=== PATIENT | female | born 2005 | race Two or more races ===

== ENCOUNTER 2024-01-05 21:27 | Emergency (ER) | payer MEDICAID, OTHER ==
[~2024-01-05] VITALS: Ht 167.6 cm; Wt 52.4 kg
[2024-01-05 21:53] LABS: Basophils # (auto) 0.1 10 ^3/uL (0-0.2); Basophils % (auto) 0.7 % (0.0-2.0); Eosinophils # (auto) 0.2 10 ^3/uL (0-0.8); Eosinophils % (auto) 1.3 % (0.0-7.0); Hematocrit 38.3 % (36.0-46.0); Hemoglobin 12.8 g/dL (12.2-16.2); Lymphocytes # (auto) 2.5 10 ^3/uL (0.4-5.4); Lymphocytes % (auto) 18.3 % (10.0-50.0); Mean Corpuscular Hemoglobin 29.1 pg (28.0-32.0); Mean Corpuscular Hgb Conc. 33.3 g/dL (32.0-36.0); Mean Corpuscular Volume 87.2 fL (80.0-100.0); Monocytes % (auto) 7.6 % (0.0-12.0); Neutrophils # (auto) 9.8 10 ^3/uL (1.6-8.6); Neutrophils % (auto) 72.1 % (37.0-80.0); Platelet Count (auto) 238 10^3/uL (140-450); Red Blood Cells 4.39 10^6/uL (4.0-5.20); Red Cell Distribution Width 14.8 % (11.8-14.3); White Blood Cell 13.5 10^3/uL (4.4-10.8)
[2024-01-05 22:08] LABS: Albumin 4.7 g/dL (3.2-4.8); Alkaline Phosphatase 61 U/L (46-116); Anion Gap 8 (5-15); Aspartate Aminotransferase < 8 U/L (13-40); BUN/Creatinine Ratio 11.3 (10.0-20.0); Blood Urea Nitrogen 7 mg/dL (9-23); Calcium 9.4 mg/dL (8.7-10.4); Carbon Dioxide 23 mmol/L (20-30); Chloride 107 mmol/L (98-107); Glucose 95 mg/dL (74-106); Potassium 3.4 mmol/L (3.5-5.1); Sodium 138 mmol/L (136-145)
[2024-01-05 22:09] LABS: Total Protein 6.9 g/dL (5.7-8.2)
[2024-01-05 22:14] LABS: Alanine Aminotransferase < 9 U/L (7-40)
[2024-01-05 22:23] LABS: Free T3 3.38 pg/mL (2.3-4.2); Free T4 (Free Thyroxine) 1.35 ng/dL (0.89-1.76)
[2024-01-05 23:50] LABS: INR 0.98 (0.9-1.15); Partial Thromboplastin Time 26.2 SEC (24.5-34.5); Prothrombin Time 10.4 sec (9.3-11.8)
[2024-01-06 00:18] VITALS: BP 128/86; PULSE 88; RESP 18; TEMP 98.2; O2SAT 100
[2024-01-06] MEDS: POTASSIUM CHL 20 Meq TABLET PO ONE (00:56)
== END 2024-01-06 00:59 | disposition home or self-care (01) ==
LOC: ER 21:27
DX: R07.89 Other chest pain (principal); Z79.899 Other long term (current) drug therapy
CPT/HCPCS: 36415; 71045; 80053; 83735; 83880; 84439; 84443; 84481; 84484; 85025; 85610; 85730; 93005

== ENCOUNTER 2024-08-22 00:33 | Emergency (ER) | payer MEDICAID ==
[~2024-08-22] VITALS: Ht 167.6 cm; Wt 61.3 kg
[2024-08-22 00:45] VITALS: TEMP 98.5
--- NOTE | 2024-08-22 00:48 | ED.PDOC ---
EXEC. CREATIVE DIRECTOR HPI Comments HPI: Poor Historian. 19-year-old female 19 weeks gestation one miscarriage presents to the ED for evaluation of two week history of watery clear discharge when she stands up. She notified the OB Gyne doctor that told her it was normal. She also stated that when she goes to the OB Gyne doctor the usually tell her that her heart rate is fast. Patient denies any vaginal bleeding or abdominal pain. Past Medical History: Denies any Past Surgical History: Denies any REVIEW OF SYSTEMS: CONSTITUTIONAL: Denies acute: fever, diaphoresis, chills, generalized weakness. HEAD: Denies acute: headache, photophobia Eyes: Denies acute: Double vision, vision loss, eye pain, eye discharge. EARS: Denies acute: tinnitus, hearing loss, ear discharge, ear pain, THROAT: Denies acute: sore throat, swelling, difficulty swallowing , pain with swallowing, change in voice. NECK: Denies acute: neck pain, neck swelling, stiff neck. HEART: Denies acute : chest pain, palpitations, LUNGS: Denies acute: SOB, wheezing, cough, hemoptysis ABDOMEN: Denies acute: abdominal pain, Nausea, Vomiting, diarrhea, melena , hematemesis, hematochezia SKIN: Denies acute: rash, redness, lesions, itchiness. EXTREMITIES: Denies acute: calf pain, numbness, tingling, weakness, denies pain in extremity. Denies acute: Low back pain. Neuro: Denies acute: focal neurological deficit, motor or sensory focal neurological deficit, tremors, seizure like activity, confusion, dizziness, change in mental status, loss of bowel or bladder function, cauda equina like symptoms. : Denies acute: dysuria, hematuria, flank pain, increase in urinary frequency. PSYCH: Denies acute: hallucination, suicidal ideation, homicidal ideation. FEMALE: Denies acute: abnormal vaginal bleeding, foul odor, PHYSICAL EXAM: General: -----no---acute distress, awake and alert. Head: normocephalic, atraumatic. Neck: supple, trachea is midline, no swelling. Throat: Normal phonation. Eyes:, no erythema, no purulent discharge, no proptosis, no icterus. Heart: regular tachycardic, no significant murmur appreciated. Lungs: no apparent respiratory distress, Able to speak in full sentences. No wheezing, no rhonchi, no crackles. No stridors Clear to auscultation bilaterally. Abdomen: non tender to palpation, non distended, soft, no guarding, no rebound, + bowel sounds. Neuro: Awake, Alert, oriented to name, self, situation, follows commands GCS=15. Speech is normal. Skin: no petechia, no purpura, no cyanosis, non-pale, not jaundice. Lower extremities: --trace bilateral - Pitting edema no deformity, no focal swelling, no calf TTP. Makes eye contact. moves all four extremities. Face: no apparent facial droop. Ambulating in the ED independently. No nuchal rigidity, Kernig's sign, Brudzinski's sign, no meningeal signs. ED COURSE: Time Seen by MD: 00:41 Reviewed Notes: Nurses Notes Allergies: Coded Allergies: NO KNOWN ALLERGIES (Unverified , 01/05/24) Home Meds Active Scripts Cephalexin Monohydrate (Cephalexin) 500 Mg Tab, 1 TAB PO TID for 5 Days, #15 TAB Prov:KINGVIANEY DO 08/22/24 Information Source: Patient Past Medical History PAST MEDICAL HISTORY: Denies Surgical History: Denies all surgeries HEAD CONCIERGE History: No Pertinent HEAD CONCIERGE History Family History Family History: Reviewed,noncontributory to illness Social History Smoker: Non-Smoker Alcohol: Denies ETOH Use Drugs: Denies Drug Use Was a procedure done? Was a procedure done?: No Differential Diagnosis (HEAD CONCIERGE) Vaginal Discharge: Foreign Body, Physiologic Discharge, PID, Pinworms, , UTI, Vaginitis - Atrophic, Vaginitis - Bacterial, Vaginitis - Candidal, Vaginitis - Contact, Vaginitis - Herpes, Vaginitis - Trichomonas X-Ray, Labs, Meds, VS Vital Signs Date Time Temp Pulse Resp B/P (MAP) Pulse Ox O2 Delivery O2 Flow Rate FiO2 08/22/24 02:40 94 16 109/68 (82) 96 08/22/24 00:45 98.5 131 20 131/84 (100) 95 98.5 Lab Test 08/22/24 02:45 08/22/24 00:54 08/22/24 00:45 Range/Units White Blood Count 11.4 H 13.7 H 4.4-10.8 10^3/uL Red Blood Count 3.76 L 4.30 4.0-5.20 10^6/uL Hemoglobin 10.9 L 12.3 12.2-16.2 g/dL Hematocrit 33.2 L 36.5 36.0-46.0 % Mean Corpuscular Volume 88.3 # 84.9 80.0-100.0 fL Mean Corpuscular Hemoglobin 29.1 28.5 28.0-32.0 pg Mean Corpuscular Hemoglobin Concent 32.9 33.5 32.0-36.0 g/dL Red Cell Distribution Width 13.3 13.8 11.8-14.3 % Platelet Count 179 217 140-450 10^3/uL Mean Platelet Volume 11.0 H 10.5 6.9-10.8 fL Neutrophils (%) (Auto) 72.6 67.2 37.0-80.0 % Lymphocytes (%) (Auto) 17.8 22.2 10.0-50.0 % Monocytes (%) (Auto) 7.3 8.4 0.0-12.0 % Eosinophils (%) (Auto) 1.9 1.7 0.0-7.0 % Basophils (%) (Auto) 0.4 0.5 0.0-2.0 % Neutrophils # (Auto) 8.2 9.2 H 1.6-8.6 10 ^3/uL Lymphocytes # (Auto) 2.0 3.0 0.4-5.4 10 ^3/uL Monocytes # (Auto) 0.8 1.1 0-1.3 10 ^3/uL Eosinophils # (Auto) 0.2 0.2 0-0.8 10 ^3/uL Basophils # (Auto) 0 0.1 0-0.2 10 ^3/uL Nucleated Red Blood Cells 0.0 0.1 % Lactic Acid Level 1.3 2.4 *H 0.4-2.0 mmol/L Sodium Level 138 136-145 mmol/L Potassium Level 3.5 3.5-5.1 mmol/L Chloride Level 106 98-107 mmol/L Carbon Dioxide Level 19 L 20-31 mmol/L Anion Gap 13 5-15 Blood Urea Nitrogen < 5 L 9-23 mg/dL Creatinine 0.45 L 0.550-1.02 mg/dL Glomerular Filtration Rate Calc 141 >90 mL/min BUN/Creatinine Ratio 11.1 10.0-20.0 Serum Glucose 98 74-106 mg/dL Calcium Level 9.9 8.7-10.4 mg/dL Magnesium Level 1.8 1.6-2.6 mg/dL Total Bilirubin 0.6 0.2-1.0 mg/dL Aspartate Amino Transferase (AST) 9 L 13-40 U/L Alanine Aminotransferase (ALT) 11 7-40 U/L Alkaline Phosphatase 65 46-116 U/L Total Protein 7.0 5.7-8.2 g/dL Albumin 4.7 3.2-4.8 g/dL Thyroid Stimulating Hormone (TSH) 0.41 L 0.55-4.78 uIU/mL Beta HCG, Quantitative 74144.6 H 1.5-4.2 mIU/mL Urine Color Colorless Yellow Urine Clarity Clear Clear Urine pH 7.0 5.0-9.0 Urine Specific [place] 1.003 1.001-1.035 Urine Protein Negative Negative Urine Ketones Negative Negative Urine Blood Negative Negative /uL Urine Nitrite Negative Negative Urine Bilirubin Negative Negative Urine Urobilinogen Normal Negative mg/dL Urine Leukocyte Esterase Negative Negative /uL Urine RBC 1 0 - 4 /hpf Urine Microscopic WBC 1 0-5 /HPF Urine Squamous Epithelial Cells Few <5 /hpf Urine Bacteria None seen None Seen /hpf Urine Glucose Normal Normal mg/dL Urine Opiates Screen Neg NEGATIVE Urine Fentanyl Screen Neg NEGATIVE Urine Barbiturates Screen Neg NEGATIVE Urine Phencyclidine Screen Neg NEGATIVE Urine Amphetamines Screen Neg NEGATIVE Urine Benzodiazepines Screen Neg NEGATIVE Urine Cocaine Screen Neg NEGATIVE Urine Cannabinoids Screen Neg NEGATIVE Current Medications Medications (Trade) Dose Ordered Sig/Lorri Route Start Time Stop Time Status Last Admin Sodium Chloride 1,000 ml @ 1,000 mls/hr Q1H ONCE IV 08/22/24 00:45 08/22/24 01:44 DC 08/22/24 01:[address] [address] Ph: [phone] DIAGNOSTIC IMAGING Diagnostic Imaging Report : [id number] Signed PATIENT: GARCIA ASTORGAESTHELACT: [id number] UNIT: [id number] : 2005 LOC: ER ROOM / BED: / AGE / SEX: 19 / F ADM STATUS: REG ER SERVICE [id number] ORDERING PHYSICIAN: VIANEY MALIK DO PROCEDURE(s): OBUS - OB ULTRASOUND COMP GTR 14 WKS REASON: watery discharge ORDER NUMBER(s): [id number], ACCESSION NUMBER(s): [id number] OB ULTRASOUND, LIMITED CLINICAL INDICATION: watery discharge TECHNIQUE: Multiple grayscale ultrasound and M-mode images were obtained of the pelvis for evaluation of intrauterine . COMPARISON: None FINDINGS: A single living fetus is seen in breech presentation. Biparietal diameter: 4.34 cm (19 weeks, 1 days) Head Circumference: 16.64 cm (19 weeks, 2 days) Abdomen Circumference: 14.79 cm (20 weeks, 0 days) Femur Length: 3.06 cm (19 weeks, 3 days) Estimated weight: 309 grams (+/- 46.36 grams). 11 oz Placenta: Anterior. Amniotic fluid: Visibly normal. heart rate: 164 beats/min. A complete anatomic survey was not performed on this exam. IMPRESSION: Single living intrauterine with an estimated gestational age of 19 weeks, 3 days, corresponding to an estimated date of delivery of 01/13/2025. ATED BY: CAROLYN BRAUN MD DICTATED DATE/TIME: 08/22/24139 SIGNED BY: CAROLYN BRAUN MD SIGNED DATE/TIME: 08/22/24139 CC: Time of 1ST Reevaluation: 02:54 Reevaluation 1ST: Resolved Patient Education/Counseling: Diagnosis, Treatment Family Education/Counseling: Other Comments Patient presented with the above HPI.-vaginal discharge in -----workup was initiated. patient was found with the above mentioned diagnosis. the following medications were ordered: please refer to order lists of meds and tests obtained by myself Dr. Malik. Patient ED course and VS have been stabilized. Patient has been reassessed in the ED and remained in a stable condition. Pertinent incidental findings were discussed with the patient and/or family. Patient/family voices understanding and is agreeable with plan. Patient has been observed in the ED adequate length of time to insure improvement/stability. Escalation of care considered: Consideration of escalation to observation or admission Patient was found to be tachycardic in the 130s and appears dehydrated and weak. Patient was given fluid resuscitation reassessed. Her tachycardia has resolved. Patient denies any itchiness or foul odor Patient was DISCHARGED home in a stable condition. All the reports of any imaging studies that were ordered by myself were reviewed by myself. Departure 1 Departure Time of Disposition: 02:25 Impression: Primary Impression: Vaginal discharge during Additional Impressions: Breech presentation Dehydration Thyroid disease during Disposition: HOME / SELF CARE / HOMELESS Condition: Stable Additional Instructions: Additional instructions: You MUST follow-up with your primary care/family doctor in 1 to 2 days. If you are unable to see your primary care/family doctor, please return to our emergency room for re-assessment and re-evaluation in 1 to 2 days. Return to the emergency room here in our facility or to the nearest ER [facility] if your symptoms change or worsen. CONSULTATIONS: you MUST Follow-up for consultation as soon as possible with: Dr.-OB Grijalva doctor in 1-2 days. Please call for appointment. You MUST call the consultants office yourself to make an appointment. You may need to arrange that through your insurance and/or your primary/family doctor. If you are unable to see the security and privacy consultant in 1 to 2 days, you must return to our emergency room (or any other ER of your choice) for re-assessment and re- evaluation. Adequate fluid hydration. Absolute pelvic rest. Continue taking vitamins. Your thyroid lab levels are abnormal please follow up with the PCP [facility] for further testing and treatment. Below is a copy of your radiological report for follow up: [address] [address] Ph: [phone] DIAGNOSTIC IMAGING Diagnostic Imaging Report : [id number] Signed PATIENT: GARCIA ASTORGA ACCT: [id number] UNIT: [id number] : 2005 LOC: ER ROOM / BED: / AGE / SEX: 19 / F ADM STATUS: REG ER SERVICE 0041 ORDERING PHYSICIAN: VIANEY MALIK DO PROCEDURE(s): OBUS - OB ULTRASOUND COMP GTR 14 WKS REASON: watery discharge ORDER NUMBER(s): [id number], ACCESSION NUMBER(s): [id number] OB ULTRASOUND, LIMITED CLINICAL INDICATION: watery discharge TECHNIQUE: Multiple grayscale ultrasound and M-mode images were obtained of the pelvis for evaluation of intrauterine . COMPARISON: None FINDINGS: A single living fetus is seen in breech presentation. Biparietal diameter: 4.34 cm (19 weeks, 1 days) Head Circumference: 16.64 cm (19 weeks, 2 days) Abdomen Circumference: 14.79 cm (20 weeks, 0 days) Femur Length: 3.06 cm (19 weeks, 3 days) Estimated weight: 309 grams (+/- 46.36 grams). 11 oz Placenta: Anterior. Amniotic fluid: Visibly normal. heart rate: 164 beats/min. A complete anatomic survey was not performed on this exam. IMPRESSION: Single living intrauterine with an estimated gestational age of 19 weeks, 3 days, corresponding to an estimated date of delivery of 01/13/2025. ATED BY: CAROLYN BRAUN MD DICTATED DATE/TIME: 08/22/24139 SIGNED BY: CAROLYN BRAUN MD SIGNED DATE/TIME: 08/22/24139 e-Prescriptions Cephalexin Monohydrate (Cephalexin) 500 Mg Tab 1 TAB PO TID for 5 Days, #15 TAB Prov: VIANEY MALIK DO 08/22/24 Discharged With: Self Critical Care Note Critical Care Time?: Yes (45 min-critical care time only) Heart Score Heart Score: Heart Score Response (Comments) Value History N/A 0 EKG N/A 0 Age N/A 0 Risk Factors N/A 0 Troponin N/A 0 Total 0 VIANEY MALIK DO Aug 22, 2024 00:48
[2024-08-22 01:04] LABS: Basophils # (auto) 0.1 10 ^3/uL (0-0.2); Basophils % (auto) 0.5 % (0.0-2.0); Eosinophils # (auto) 0.2 10 ^3/uL (0-0.8); Eosinophils % (auto) 1.7 % (0.0-7.0); Hematocrit 36.5 % (36.0-46.0); Hemoglobin 12.3 g/dL (12.2-16.2); Lymphocytes % (auto) 22.2 % (10.0-50.0); Mean Corpuscular Hemoglobin 28.5 pg (28.0-32.0); Mean Corpuscular Hgb Conc. 33.5 g/dL (32.0-36.0); Mean Corpuscular Volume 84.9 fL (80.0-100.0); Monocytes # (auto) 1.1 10 ^3/uL (0-1.3); Monocytes % (auto) 8.4 % (0.0-12.0); Neutrophils # (auto) 9.2 10 ^3/uL (1.6-8.6); Neutrophils % (auto) 67.2 % (37.0-80.0); Nucleated Red Blood Cells % 0.1 %; Platelet Count (auto) 217 10^3/uL (140-450); Red Cell Distribution Width 13.8 % (11.8-14.3); White Blood Cell 13.7 10^3/uL (4.4-10.8)
[2024-08-22 01:11] LABS: Urine Bacteria None Seen /hpf (None Seen)
[2024-08-22 01:23] LABS: Alanine Aminotransferase 11 U/L (7-40); Albumin 4.7 g/dL (3.2-4.8); Alkaline Phosphatase 65 U/L (46-116); Anion Gap 13 (5-15); Bilirubin, Total 0.6 mg/dL (0.2-1.0); Calcium 9.9 mg/dL (8.7-10.4); Chloride 106 mmol/L (98-107); Glucose 98 mg/dL (74-106); Magnesium 1.8 mg/dL (1.6-2.6); Sodium 138 mmol/L (136-145)
[2024-08-22 01:26] LABS: Lactic Acid w/Reflex 2.4 mmol/L (0.4-2.0)
[2024-08-22 01:28] LABS: Aspartate Aminotransferase 9 U/L (13-40); BUN/Creatinine Ratio 11.1 (10.0-20.0); Blood Urea Nitrogen < 5 mg/dL (9-23); Carbon Dioxide 19 mmol/L (20-31); Potassium 3.5 mmol/L (3.5-5.1)
--- NOTE | 2024-08-22 01:43 | DVH ---
OB ULTRASOUND, LIMITED CLINICAL INDICATION: watery discharge TECHNIQUE: Multiple grayscale ultrasound and M-mode images were obtained of the pelvis for evaluation of intrauterine . COMPARISON: None FINDINGS: A single living fetus is seen in breech presentation. Biparietal diameter: 4.34 cm (19 weeks, 1 days) Head Circumference: 16.64 cm (19 weeks, 2 days) Abdomen Circumference: 14.79 cm (20 weeks, 0 days) Femur Length: 3.06 cm (19 weeks, 3 days) Estimated weight: 309 grams (+/- 46.36 grams). 11 oz Placenta: Anterior. Amniotic fluid: Visibly normal. heart rate: 164 beats/min. A complete anatomic survey was not performed on this exam. IMPRESSION: Single living intrauterine with an estimated gestational age of 19 weeks, 3 days, corresp onding to an estimated date of delivery of 01/13/2025.
[2024-08-22 01:48] LABS: Barbiturate Scree,Urine Neg (NEGATIVE); Opiate Scree,Urine Neg (NEGATIVE)
[2024-08-22 01:49] LABS: Amphetamine Screen, Urine Neg (NEGATIVE); Benzodiazephine Screen, Urine Neg (NEGATIVE); Cannabinoid Screen, Urine Neg (NEGATIVE); Cocaine Screen, Urine Neg (NEGATIVE); Phencyclidine Screen, Urine Neg (NEGATIVE)
[2024-08-22] MEDS: SODIUM CHLORIDE 0.9% 1,000 ML IV ONE (01:51)
[2024-08-22 02:40] VITALS: BP 109/68; PULSE 94; RESP 16; O2SAT 96
[2024-08-22] MEDS ORDERED: CEPH500T PO (02:59)
[2024-08-22 03:23] LABS: Basophils # (auto) 0 10 ^3/uL (0-0.2); Basophils % (auto) 0.4 % (0.0-2.0); Eosinophils # (auto) 0.2 10 ^3/uL (0-0.8); Eosinophils % (auto) 1.9 % (0.0-7.0); Hematocrit 33.2 % (36.0-46.0); Hemoglobin 10.9 g/dL (12.2-16.2); Lymphocytes % (auto) 17.8 % (10.0-50.0); Mean Corpuscular Hemoglobin 29.1 pg (28.0-32.0); Mean Corpuscular Hgb Conc. 32.9 g/dL (32.0-36.0); Mean Corpuscular Volume 88.3 fL (80.0-100.0); Monocytes # (auto) 0.8 10 ^3/uL (0-1.3); Monocytes % (auto) 7.3 % (0.0-12.0); Neutrophils # (auto) 8.2 10 ^3/uL (1.6-8.6); Neutrophils % (auto) 72.6 % (37.0-80.0); Platelet Count (auto) 179 10^3/uL (140-450); Red Blood Cells 3.76 10^6/uL (4.0-5.20); Red Cell Distribution Width 13.3 % (11.8-14.3); White Blood Cell 11.4 10^3/uL (4.4-10.8)
[2024-08-22 03:29] LABS: Urine Blood Negative /uL (Negative); Urine Clarity Clear (Clear); Urine Color Colorless (Yellow); Urine Protein, UAD Negative (Negative); Urine Specific Gravity 1.003 (1.001-1.035); Urine Squamous Epithelial Cell FEW /hpf (<5); Urine Urobilinogen Normal (Negative); Urine WBC 1 /HPF (0-5)
== END 2024-08-22 03:48 | disposition home or self-care (01) ==
LOC: ER 00:33
DX: O32.1XX0 Maternal care for breech presentation, not applicable or unspecified (principal); O99.891 Other specified diseases and conditions complicating pregnancy; N89.8 Other specified noninflammatory disorders of vagina; O99.282 Endocrine, nutritional and metabolic diseases complicating pregnancy, second trimester; E07.9 Disorder of thyroid, unspecified; E86.0 Dehydration; Z79.899 Other long term (current) drug therapy; Z3A.19 19 weeks gestation of pregnancy
CPT/HCPCS: 36415; 76805; 80053; 80307; 81001; 83605; 83735; 84443; 84702; 85025; 96360; 96361; 99284; J7030

== ENCOUNTER 2024-09-21 04:50 | Observation (INO) | payer MEDICAID ==
[~2024-09-21] VITALS: Ht 167.6 cm; Wt 63.0 kg
[~2024-09-21 04:50] MED LIST: CEPH500T PO
[2024-09-21] MEDS ORDERED: PREN-96 PO (06:22)
--- NOTE | 2024-09-21 16:02 | DVHDS2 ---
Physician Discharge Progress N Final Diagnosis: dec [id number] wks Operations or Procedures: Operations or Procedures nst reactive reviwed Condition on Discharge: Good Disposition: Home Discharge Instructions: Diet: Regular Activity: No Restrictions, As Tolerated Follow Up/Referral: ESTABLISH CARE WITH A PRIMARY OB SOON POSSIBLE. Medications: CONTINUE TAKING ALL CURRENT MEDICATIONS PREVIOUSLY PRESCRIBED BY YOUR OB. Follow Up Care: Specialist: 1w Discharge Statement: "Patient was advised to return to the ER or call 911 if any headaches, dizziness, shortness of breath, chest pain, abdominal pain, bleeding, fevers, or worsening of medical condition. Patient was counseled about treatment plan, medications, possible side effects, patientverbalized understanding. All questions were answered to the best of my ability. This discharge took greater then 30 minutes in planning, reviewing documentation, counseling the patient, and discussing with other team members." Visit Coding OBGYN Date of Service: September 21, 2024 Billing Provider: OPHELIA FRENCH DO IRON ERECTOR Common Visit Codes: 01360-FEXQUPD OBS CARE (HIGH) IRON ERECTOR Procedure Codes: 42286-75- NON-STRESS TEST OPHELIA FRENCH DO September 21, 2024 16:02
== END 2024-09-21 06:32 | disposition home or self-care (01) ==
LOC: LDRP 04:50
PROVIDERS: ADMIT Obstetrics & Gynecology; ATTEND Obstetrics & Gynecology
DX: O36.8120 Decreased fetal movements, second trimester, not applicable or unspecified (principal); Z98.890 Other specified postprocedural states; Z79.899 Other long term (current) drug therapy; Z3A.23 23 weeks gestation of pregnancy

== ENCOUNTER 2024-09-24 16:48 | Observation (INO) | payer MEDICAID ==
[~2024-09-24 16:48] MED LIST changes: +PREN-96 PO
[2024-09-24 18:25] LABS: Basophils # (auto) 0 10 ^3/uL (0-0.2); Basophils % (auto) 0.4 % (0.0-2.0); Eosinophils # (auto) 0.3 10 ^3/uL (0-0.8); Eosinophils % (auto) 2.5 % (0.0-7.0); Hematocrit 32.5 % (36.0-46.0); Hemoglobin 10.4 g/dL (12.2-16.2); Lymphocytes # (auto) 1.8 10 ^3/uL (0.4-5.4); Lymphocytes % (auto) 14.4 % (10.0-50.0); Mean Corpuscular Hemoglobin 28.1 pg (28.0-32.0); Mean Corpuscular Hgb Conc. 32.1 g/dL (32.0-36.0); Mean Corpuscular Volume 87.5 fL (80.0-100.0); Monocytes % (auto) 8.4 % (0.0-12.0); Neutrophils # (auto) 9.2 10 ^3/uL (1.6-8.6); Neutrophils % (auto) 74.3 % (37.0-80.0); Nucleated Red Blood Cells % 0.1 %; Platelet Count (auto) 214 10^3/uL (140-450); Red Blood Cells 3.71 10^6/uL (4.0-5.20); Red Cell Distribution Width 14.2 % (11.8-14.3); White Blood Cell 12.4 10^3/uL (4.4-10.8)
[2024-09-24 18:37] LABS: INR 0.95 (0.9-1.15); Partial Thromboplastin Time 25.4 SEC (24.5-34.5); Prothrombin Time 10.1 sec (9.3-11.8)
[2024-09-24 18:39] LABS: Alanine Aminotransferase 16 U/L (7-40); Alkaline Phosphatase 69 U/L (46-116); Anion Gap 9 (5-15); Aspartate Aminotransferase 14 U/L (13-40); Bilirubin, Total 0.6 mg/dL (0.2-1.0); Carbon Dioxide 22 mmol/L (20-31); Chloride 107 mmol/L (98-107); Glucose 94 mg/dL (74-106); Sodium 138 mmol/L (136-145); Total Protein 5.8 g/dL (5.7-8.2)
[2024-09-24 18:43] LABS: BUN/Creatinine Ratio 14.7 (10.0-20.0); Blood Urea Nitrogen < 5 mg/dL (9-23); Calcium 8.6 mg/dL (8.7-10.4); Potassium 3.3 mmol/L (3.5-5.1); Uric Acid 1.5 mg/dL (3.1-7.8)
[2024-09-24 18:45] LABS: Urine Bacteria None Seen /hpf (None Seen)
[2024-09-24 19:00] LABS: Urine Blood Negative /uL (Negative); Urine Clarity Clear (Clear); Urine Color Colorless (Yellow); Urine Protein, UAD Negative (Negative); Urine Specific Gravity 1.005 (1.001-1.035); Urine Squamous Epithelial Cell FEW /hpf (<5); Urine Urobilinogen Normal (Negative); Urine WBC 4 /HPF (0-5); Urine pH 6.5 (5.0-9.0)
[2024-09-24 19:17] LABS: Protein, Urine < 6.0 mg/dL (1-14)
[2024-09-24 19:19] LABS: Creatinine, Urine 19.04 mg/dL (30.0-125.0); Urine Protein/Creatinine Ratio 0.32
[2024-09-24 19:21] LABS: Amphetamine Screen, Urine Neg (NEGATIVE); Barbiturate Scree,Urine Neg (NEGATIVE); Benzodiazephine Screen, Urine Neg (NEGATIVE); Cannabinoid Screen, Urine Neg (NEGATIVE); Cocaine Screen, Urine Neg (NEGATIVE); Opiate Scree,Urine Neg (NEGATIVE); Phencyclidine Screen, Urine Neg (NEGATIVE)
--- NOTE | 2024-09-24 21:14 | DVHDS2 ---
Physician Discharge Progress N Final Diagnosis: IUP 23 wk, Headache Hx of migraines Secondary Diagnosis: Maternal tachycardia Operations or Procedures: Operations or Procedures NST PIH labs normal TSH low Condition on Discharge: Stable Disposition: Home Discharge Instructions: Diet: Regular Activity: No Restrictions, As Tolerated Follow Up/Referral: FOLLOW UP WITH YOUR PRIMARY OB. Medications: CONTINUE TAKING ALL MEDICATIONS PREVIOUSLY PRESCRIBED BY YOUR PRIMARY OB. Follow Up Care: Discharge Statement: "Patient was advised to return to the ER or call 911 if any headaches, dizziness, shortness of breath, chest pain, abdominal pain, bleeding, fevers, or worsening of medical condition. Patient was counseled about treatment plan, medications, possible side effects, patientverbalized understanding. All questions were answered to the best of my ability. This discharge took greater then 30 minutes in planning, reviewing documentation, counseling the patient, and discussing with other team members." Visit Coding OBGYN Date of Service: September 24, 2024 Billing Provider: VIDHYA DUMONT DO PULP AND PAPER TESTER Common Visit Codes: 17937-[id number] INP/OBS CARE(HIGH) PULP AND PAPER TESTER Procedure Codes: 66097-79- NON-STRESS TEST VIDHYA DUMONT DO September 24, 2024 21:14
== END 2024-09-24 19:53 | disposition home or self-care (01) ==
LOC: LDRP 16:48
PROVIDERS: ADMIT Obstetrics & Gynecology; ATTEND Obstetrics & Gynecology
DX: O99.891 Other specified diseases and conditions complicating pregnancy (principal); R00.0 Tachycardia, unspecified; G43.909 Migraine, unspecified, not intractable, without status migrainosus; Z3A.23 23 weeks gestation of pregnancy; Z98.890 Other specified postprocedural states; Z79.899 Other long term (current) drug therapy
CPT/HCPCS: 36415; 80053; 80307; 81001; 81002; 82570; 84156; 84443; 84550; 85025; 85610; 85730; 94760; G0378

== ENCOUNTER 2024-10-06 23:21 | Observation (INO) | payer MEDICAID ==
[~2024-10-06] VITALS: Ht 167.6 cm; Wt 65.3 kg
[2024-10-07] MEDS ORDERED: FERR325T24 PO (00:22)
--- NOTE | 2024-10-07 00:31 | DVHDS2 ---
Physician Discharge Progress N Final Diagnosis: IUP at 25w Reactive NST Operations or Procedures: Operations or Procedures 19yo G2,0010 with EDC of 01/15 2025, EGA 25weeks 4d. [facility] and reports decreased movement, no VB, LOF, UC, ZEPEAD, epigastric pain or vision changes. Reports she is anemia Medications: Vitamin PMH: Reports she has anemia, wonders why her prior Ob provider did not give her iron supplement.. Left Inguinal Hernia repaired in 2017 Family Hist: Maternal Grand mother had Breast cancer & later lung cancer; at age 71. Great Grandmother also at age 71 from Pancreatic cancer O: A&O x3 NAD No CVA tenderness Abdomen palpate soft EFM FHR baseline 140bpm, moderate variability and accelerations present No contractions noted nor palpated A: IUP at 25weeks Reactive NST P: Rx Ferrous Sulfate 325mg PO daily Pt Education: Iron & Vitamin C rich diet advised Discharge home Keep appointment as scheduled on 10/17/24 and all visit appointments; seek care sooner if needed 2nd trimester emergency S&S FMC, PTL & pre-eclampsia precautions reviewed with pt; advised to seek health care if any Condition on Discharge: Good Disposition: Home Discharge Instructions: Diet: Regular Activity: No Restrictions, As Tolerated Follow Up/Referral: Keep all scheduled appointments Medications: Ferous Sulfate Follow Up Care: Discharge Statement: 2nd trimester emergency S&S FMC, PTL & pre-eclampsia precautions reviewed with pt; advised to seek health care if any. Keep all scheduled appointments. "Patient was advised to return to the ER or call 911 if any headaches, dizziness, shortness of breath, chest pain, abdominal pain, bleeding, fevers, or worsening of medical condition. Patient was counseled about treatment plan, medications, possible side effects, patientverbalized understanding. All questions were answered to the best of my ability. This discharge took greater then 30 minutes in planning, reviewing documentation, counseling the patient, and discussing with other team members." Visit Coding OBGYN Date of Service: Oct 07, 2024 Billing Provider: LADI LONGORIA CNM MACHINE BASTER Common Visit Codes: 80105-UOO/OBS SAME DATE (HIGH) LADI LONGORIA CNM Oct 07, 2024 00:31
== END 2024-10-07 00:31 | disposition home or self-care (01) ==
LOC: LDRP 23:21
PROVIDERS: ADMIT Obstetrics & Gynecology; ATTEND Obstetrics & Gynecology
DX: O36.8120 Decreased fetal movements, second trimester, not applicable or unspecified (principal); O99.012 Anemia complicating pregnancy, second trimester; D64.9 Anemia, unspecified; Z79.899 Other long term (current) drug therapy; Z3A.25 25 weeks gestation of pregnancy
CPT/HCPCS: 59025; 81002; G0378

== ENCOUNTER 2024-10-24 06:04 | Observation (INO) | payer MEDICAID ==
[~2024-10-24] VITALS: Ht 167.6 cm; Wt 67.1 kg
[~2024-10-24 06:04] MED LIST changes: +FERR325T24 PO
--- NOTE | 2024-10-24 07:39 | DVH ---
LIMITED OB ULTRASOUND > 14 WKS: HISTORY: abdominal pain TECHNIQUE: Multiple real-time grayscale images of the gravid uterus with duplex Doppler color flow an d M-mode spectral analysis. TRANSDUCER: Transabdominal COMPARISON: None Findings/ IMPRESSION: heart rate 141 beats per minute MALINA 21.8 cm. Deepest pocket measures 8.2 cm. Cervix measures 3.4 cm Breech Presentation Anterior Placenta without previa or abruption.
[2024-10-24] MEDS: TERBUTALINE SULFATE 1 MG/ML 1ML VIAL SC SCH (07:44)
[2024-10-24] MEDS: LACTATED RINGER'S 1,000 ML IV ONE (07:45)
[2024-10-24] MEDS ORDERED: NITR-87 PO (07:52)
--- NOTE | 2024-10-24 07:56 | DVHDS2 ---
Physician Discharge Progress N Final Diagnosis: ptl,ucs 28wks Operations or Procedures: Operations or Procedures nst reactive reviewed,mau jean-baptiste Condition on Discharge: Good Disposition: Eloped Discharge Instructions: Diet: Regular Activity: No Restrictions, As Tolerated Medications: macrobid Follow Up Care: Specialist: 1d Discharge Statement: "Patient was advised to return to the ER or call 911 if any headaches, dizziness, shortness of breath, chest pain, abdominal pain, bleeding, fevers, or worsening of medical condition. Patient was counseled about treatment plan, medications, possible side effects, patientverbalized understanding. All questions were answered to the best of my ability. This discharge took greater then 30 minutes in planning, reviewing documentation, counseling the patient, and discussing with other team members." Visit Coding OBGYN Date of Service: Oct 24, 2024 Billing Provider: OPHELIA FRENCH DO AIR CARGO SPECIALIST Common Visit Codes: 81125-MNCDYLB OBS CARE (HIGH) AIR CARGO SPECIALIST Procedure Codes: 74236-07- NON-STRESS TEST OPHELIA FRENCH DO Oct 24, 2024 07:56
[2024-10-24 08:04] LABS: Urine Bacteria None Seen /hpf (None Seen)
[2024-10-24 08:24] LABS: Urine Blood Negative /uL (Negative); Urine Clarity Clear (Clear); Urine Color Light-Yellow (Yellow); Urine Mucus FEW (None Seen); Urine Protein, UAD Negative (Negative); Urine Specific Gravity 1.014 (1.001-1.035); Urine Squamous Epithelial Cell FEW /hpf (<5); Urine Urobilinogen Normal (Negative); Urine WBC 25 /HPF (0-5); Urine WBC Clumps PRESENT /hpf (None Seen); Urine pH 7.5 (5.0-9.0)
[2024-10-24] MEDS: BETAMETHASONE ACET (30mg/5ml) 5ml Vial 6mg/ml IM ONE (08:40)
== END 2024-10-24 08:41 | disposition home or self-care (01) ==
LOC: UNDOADMOB 06:04 → LDRP 06:04 → UNDODISOB 08:41
PROVIDERS: ADMIT Obstetrics & Gynecology; ATTEND Obstetrics & Gynecology
DX: O60.03 Preterm labor without delivery, third trimester (principal); Z3A.28 28 weeks gestation of pregnancy; Z79.899 Other long term (current) drug therapy
CPT/HCPCS: 59025; 76815; 81001; 81002; 87086; 94760; 96360; 96361; 96372; G0378; J0702; J3105

== ENCOUNTER 2024-10-25 07:42 | Observation (INO) | payer MEDICAID ==
[~2024-10-25] VITALS: Ht 162.6 cm; Wt 63.5 kg
[~2024-10-25 07:42] MED LIST changes: +NITR-87 PO
[2024-10-25] MEDS: BETAMETHASONE ACET (30mg/5ml) 5ml Vial 6mg/ml IM ONE (08:29)
--- NOTE | 2024-10-25 09:04 | DVHDS2 ---
Physician Discharge Progress N Final Diagnosis: ptl 28wks Operations or Procedures: Operations or Procedures celestone 2nd one given nst reactive reviwed Condition on Discharge: Good Disposition: Home Discharge Instructions: Diet: Regular Activity: See Comment Activity comment: Pelvic Rest Follow Up/Referral: Follow up once weekly for NST and keep all scheduled appt's with OBGYN Medications: Finish entire RX antibiotics as directed and take all prescription medications exactly as prescribed Follow Up Care: Specialist: 1w Discharge Statement: "Patient was advised to return to the ER or call 911 if any headaches, dizziness, shortness of breath, chest pain, abdominal pain, bleeding, fevers, or worsening of medical condition. Patient was counseled about treatment plan, medications, possible side effects, patientverbalized understanding. All questions were answered to the best of my ability. This discharge took greater then 30 minutes in planning, reviewing documentation, counseling the patient, and discussing with other team members." Visit Coding OBGYN Date of Service: Oct 25, 2024 Billing Provider: OPHELIA FRENCH DO MARBLE FINISHER Common Visit Codes: 79202-OJSMQFL OBS CARE (HIGH) MARBLE FINISHER Procedure Codes: 21644-97- NON-STRESS TEST OPHELIA FRENCH DO Oct 25, 2024 09:04
== END 2024-10-25 08:57 | disposition home or self-care (01) ==
LOC: LDRP 07:42
PROVIDERS: ADMIT Obstetrics & Gynecology; ATTEND Obstetrics & Gynecology
DX: O60.03 Preterm labor without delivery, third trimester (principal); Z3A.28 28 weeks gestation of pregnancy; Z79.899 Other long term (current) drug therapy; Z98.890 Other specified postprocedural states
CPT/HCPCS: 59025; 81002; 96372; G0378

== ENCOUNTER 2024-10-30 01:00 | Observation (INO) | payer MEDICAID ==
[~2024-10-30] VITALS: Ht 167.6 cm; Wt 67.1 kg
--- NOTE | 2024-10-30 06:43 | DVHDS2 ---
Discharge Summary Date of Admission Oct 30, 2024 at 01:00 Date of Discharge: Oct 30, 2024 Admitting Diagnosis TWENTY-NINE WEEK INTRAUTERINE RULE OUT LABOR Wounds: NONE Labs/Diagnostic Data: NONE Brief Hx & Hospital Course: PATIENT WAS OBSERVED NST PERFORMED NO EVIDENCE OF LABOR CERVIX CLOSED REASSURING HEART TONES Consults/Reason for consult NONE Operations or Procedures NST PERFORMED Condition at Discharge: Good Final Diagnosis/Problems List stable 29 week IUP Discharge Disposition: Home Discharge Instruct/Medications Diet: Regular Activity: No Restrictions, As Tolerated Activity comment: PELVIC REST LABOR PRECAUTIONS Follow Up/Referral: ASSCHEDULED Discharge Statement: "Patient was advised to return to the ER or call 911 if any headaches, dizziness, shortness of breath, chest pain, abdominal pain, bleeding, fevers, or worsening of medical condition. Patient was counseled about treatment plan, medications, possible side effects, patientverbalized understanding. All questions were answered to the best of my ability. This discharge took greater then 30 minutes in planning, reviewing documentation, counseling the patient, and discussing with other team members." ASSESSMENT ASSESSMENT Assessment stable 29 week IUP Visit Coding OBGYN Date of Service: Oct 30, 2024 Billing Provider: KYMBERLY ALEGRIA DO CITY DIRECTOR Common Visit Codes: 71375-NKD/OBS SAME DATE (LOW), 21248-DZV/OBS SAME DATE (MOD), 17389-YNR/OBS SAME DATE (HIGH) CITY DIRECTOR Procedure Codes: 93177-98- NON-STRESS TEST KYMBERLY ALEGRIA DO Oct 30, 2024 06:43
== END 2024-10-30 02:00 | disposition home or self-care (01) ==
LOC: LDRP 01:00
PROVIDERS: ADMIT Obstetrics & Gynecology; ATTEND Obstetrics & Gynecology
DX: O99.891 Other specified diseases and conditions complicating pregnancy (principal); M54.9 Dorsalgia, unspecified; O26.893 Other specified pregnancy related conditions, third trimester; R10.9 Unspecified abdominal pain; Z98.890 Other specified postprocedural states; Z79.899 Other long term (current) drug therapy; Z3A.29 29 weeks gestation of pregnancy
CPT/HCPCS: 59025; 81002; 94760; G0378

== ENCOUNTER 2024-11-01 07:18 | Observation (INO) | payer MEDICAID ==
--- NOTE | 2024-11-01 15:05 | DVHDS2 ---
Physician Discharge Progress N Final Diagnosis: PTL 29WKS Operations or Procedures: Operations or Procedures NST REACTIVE REVIWED,ANÍBALO Condition on Discharge: Good Disposition: Home Discharge Instructions: Diet: Regular Activity: Light activity Medications: NA Follow Up Care: Specialist: MISA IN 3D Discharge Statement: "Patient was advised to return to the ER or call 911 if any headaches, dizziness, shortness of breath, chest pain, abdominal pain, bleeding, fevers, or worsening of medical condition. Patient was counseled about treatment plan, medications, possible side effects, patientverbalized understanding. All questions were answered to the best of my ability. This discharge took greater then 30 minutes in planning, reviewing documentation, counseling the patient, and discussing with other team members." Visit Coding OBGYN Date of Service: Nov 01, 2024 Billing Provider: OPHELIA FRENCH DO FIELD SEISMOLOGIST Common Visit Codes: 82253-SIFYATO INP/OBS CARE (MOD) FIELD SEISMOLOGIST Procedure Codes: 21597-87- NON-STRESS TEST OPHELIA FRENCH DO Nov 01, 2024 15:05
== END 2024-11-01 08:40 | disposition home or self-care (01) ==
LOC: LDRP 07:48 → UNDOADMOB 07:48 → LDRP 08:01
PROVIDERS: ADMIT Obstetrics & Gynecology; ATTEND Obstetrics & Gynecology
DX: O60.03 Preterm labor without delivery, third trimester (principal); Z3A.29 29 weeks gestation of pregnancy; Z79.899 Other long term (current) drug therapy; Z98.890 Other specified postprocedural states
CPT/HCPCS: 59025; 81002; 94760; G0378

== ENCOUNTER 2024-11-08 07:17 | Observation (INO) | payer MEDICAID ==
--- NOTE | 2024-11-09 07:55 | DVHDS2 ---
Physician Discharge Progress N Final Diagnosis: ptl 30wks Operations or Procedures: Operations or Procedures nst reactive reviwed,sono Condition on Discharge: Good Disposition: Home Discharge Instructions: Diet: Regular Activity: No Restrictions, As Tolerated Medications: na Follow Up Care: Specialist: 1w Discharge Statement: "Patient was advised to return to the ER or call 911 if any headaches, dizziness, shortness of breath, chest pain, abdominal pain, bleeding, fevers, or worsening of medical condition. Patient was counseled about treatment plan, medications, possible side effects, patientverbalized understanding. All questions were answered to the best of my ability. This discharge took greater then 30 minutes in planning, reviewing documentat ion, counseling the patient, and discussing with other team members." Visit Coding OBGYN Date of Service: Nov 08, 2024 Billing Provider: OPHELIA FRENCH DO GLASSBLOWER Common Visit Codes: [id number] INP/OBS CARE (HIGH) GLASSBLOWER Procedure Codes: 94881-08- NON-STRESS TEST OPHELIA FERNCH DO Nov 09, 2024 07:55
== END 2024-11-08 09:05 | disposition home or self-care (01) ==
LOC: UNDOADMOB 07:58 → LDRP 07:58 → UNDODISOB 09:05
PROVIDERS: ADMIT Obstetrics & Gynecology; ATTEND Obstetrics & Gynecology
DX: O60.03 Preterm labor without delivery, third trimester (principal); Z3A.30 30 weeks gestation of pregnancy; Z79.899 Other long term (current) drug therapy; Z98.890 Other specified postprocedural states
CPT/HCPCS: 59025; 81002; 94760; G0378

== ENCOUNTER 2024-11-14 08:13 | Observation (INO) | payer MEDICAID | END 2024-11-14 09:49 | disposition home or self-care (01) | LOC: LDRP 08:38 | PROVIDERS: ADMIT Obstetrics & Gynecology; ATTEND Obstetrics & Gynecology | DX: O60.03 Preterm labor without delivery, third trimester (principal); Z3A.31 31 weeks gestation of pregnancy; Z79.899 Other long term (current) drug therapy; Z98.890 Other specified postprocedural states | CPT/HCPCS: 59025; 81002; 94762; G0378 ==

== ENCOUNTER 2024-11-21 08:00 | Observation (INO) | payer MEDICAID ==
[2024-11-21] MEDS ORDERED: NIFE10CA52 PO (08:30)
--- NOTE | 2024-11-21 09:33 | DVH ---
BIOPHYSICAL PROFILE HISTORY: PTL TECHNIQUE: Multiple transabdominal real-time grayscale sonographic images through the gravid uterus of the fetus with duplex Doppler color flow and M-mode spectral analysis FINDINGS: BIOPHYSICAL PROFILE: breathing score: 2 movement score: 2 tone score: 2 Quantitative MALINA score: 2 (MALINA: 27 Cm.) polyhydramnios Total score: 8 The cervix measure 3.2 cm. There is fluid in the cervical canal. Single live fetus in cephalic presentation. heart rate 143 beats per minute. Grade 2 anterior placenta without previa or abruption IMPRESSION: Biophysical profile score: 8 Polyhydramnios with MALINA of 27 cm.
--- NOTE | 2024-11-21 14:18 | DVHDS2 ---
Physician Discharge Progress N Final Diagnosis: ptl 32 wks Operations or Procedures: Operations or Procedures nst reactive reviewed,sono Condition on Discharge: Good Disposition: Home Discharge Instructions: Diet: Regular Activity: No Restrictions, As Tolerated Medications: na Follow Up Care: Specialist: 1w Discharge Statement: "Patient was advised to return to the ER or call 911 if any headaches, dizziness, shortness of breath, chest pain, abdominal pain, bleeding, fevers, or worsening of medical condition. Patient was counseled about treatment plan, medications, possible side effects, patientverbalized understanding. All questions were answered to the best of my ability. This discharge took greater then 30 minutes in planning, reviewing document ation, counseling the patient, and discussing with other team members." Visit Coding OBGYN Date of Service: Nov 21, 2024 Billing Provider: OPHELIA FRENCH DO ASSOCIATE EMBALMER/FUNERAL DIRECTOR Common Visit Codes: 40415-[id number] OBS CARE (HIGH) ASSOCIATE EMBALMER/FUNERAL DIRECTOR Procedure Codes: 00708-69- NON-STRESS TEST OPHELIA FRENCH DO Nov 21, 2024 14:18
== END 2024-11-21 09:45 | disposition home or self-care (01) ==
LOC: LDRP 08:00
PROVIDERS: ADMIT Obstetrics & Gynecology; ATTEND Obstetrics & Gynecology
DX: O60.03 Preterm labor without delivery, third trimester (principal); Z98.890 Other specified postprocedural states; Z79.899 Other long term (current) drug therapy; Z3A.32 32 weeks gestation of pregnancy
CPT/HCPCS: 59025; 76817; 76819; 81002; 94760; G0378

== ENCOUNTER 2024-11-28 06:36 | Observation (INO) | payer MEDICAID ==
[~2024-11-28] VITALS: Ht 167.6 cm; Wt 75.3 kg
[~2024-11-28 06:36] MED LIST changes: +NIFE10CA52 PO
[2024-11-28 09:54] LABS: Hematocrit 31.3 % (36.0-46.0); Hemoglobin 10.0 g/dL (12.2-16.2); Mean Corpuscular Hemoglobin 24.2 pg (28.0-32.0); Mean Corpuscular Volume 75.5 fL (80.0-100.0); Nucleated Red Blood Cells % 0.1 %
[2024-11-28 10:05] LABS: Urine Protein, UAD Negative (Negative)
--- NOTE | 2024-11-28 10:05 | DVH ---
BIOPHYSICAL PROFILE HISTORY: PTL, r/o PIH Comparison Study: US BIOPHYSICAL PROFILE on DOS: 11/21/24 TECHNIQUE: Multiple real-time grayscale sonographic images through the gravid uterus of the fetus wi th duplex Doppler color flow and M-mode spectral analysis FINDINGS: BIOPHYSICAL PROFILE: breathing score: Mean movement score: 2 tone score: 2 Quantitative MALINA score: 23.77 (MALINA: 23.8 Cm.) Total score: 8 The cervix 3.29 cm Single live fetus in cephalic presentation. heart rate 147.22 beats per minute. Grade 2, anterior placenta without previa or abruption IMPRESSION: Biophysical profile score: 8
[2024-11-28 10:09] LABS: Alanine Aminotransferase 11 U/L (7-40); Albumin 4.1 g/dL (3.2-4.8); Anion Gap 9 (5-15); BUN/Creatinine Ratio 12.2 (10.0-20.0); Bilirubin, Total 0.5 mg/dL (0.2-1.0); Calcium 9.2 mg/dL (8.7-10.4); Carbon Dioxide 20 mmol/L (20-31); Potassium 3.7 mmol/L (3.5-5.1); Sodium 138 mmol/L (136-145); Total Protein 6.0 g/dL (5.7-8.2)
[2024-11-28 10:10] LABS: INR 0.91 (0.9-1.15); Partial Thromboplastin Time 22.2 SEC (24.5-34.5); Prothrombin Time 9.7 sec (9.3-11.8)
[2024-11-28 10:12] LABS: Alkaline Phosphatase 161 U/L (46-116); Blood Urea Nitrogen 5 mg/dL (9-23); Chloride 109 mmol/L (98-107); Glucose 118 mg/dL (74-106); Uric Acid 1.5 mg/dL (3.1-7.8)
[2024-11-28 10:18] LABS: Protein, Urine < 6.0 mg/dL (1-14)
--- NOTE | 2024-11-28 14:07 | DVHDS2 ---
Physician Discharge Progress N Final Diagnosis: pih 33wks,ptl Operations or Procedures: Operations or Procedures nst reactive reviwed,elyo Condition on Discharge: Good Disposition: Home Discharge Instructions: Diet: Regular Activity: Light activity Medications: na Follow Up Care: Specialist: 1w Discharge Statement: "Patient was advised to return to the ER or call 911 if any headaches, dizziness, shortness of breath, chest pain, abdominal pain, bleeding, fevers, or worsening of medical condition. Patient was counseled about treatment plan, medications, possible side effects, patientverbalized understanding. All questions were answered to the best of my ability. This discharge took greater then 30 minutes in planning, reviewing documentation, counseling the patient, and discussing with other team members." Visit Coding OBGYN Date of Service: Nov 28, 2024 Billing Provider: OPHELIA FRENCH DO REHABILITATION MEDICINE PHYSICIAN Common Visit Codes: [id number] OBS CARE (HIGH) REHABILITATION MEDICINE PHYSICIAN Procedure Codes: 27947-48- NON-STRESS TEST OPHELIA FRENCH DO Nov 28, 2024 14:07
== END 2024-11-28 11:23 | disposition home or self-care (01) ==
LOC: LDRP 08:48
PROVIDERS: ADMIT Obstetrics & Gynecology; ATTEND Obstetrics & Gynecology
DX: O13.3 Gestational [pregnancy-induced] hypertension without significant proteinuria, third trimester (principal); O60.03 Preterm labor without delivery, third trimester; Z3A.33 33 weeks gestation of pregnancy; Z98.890 Other specified postprocedural states; Z79.899 Other long term (current) drug therapy
CPT/HCPCS: 36415; 59025; 76819; 80053; 81001; 81002; 82570; 84156; 84550; 85025; 85610; 85730; 94760; G0378

== ENCOUNTER 2024-11-30 09:00 | Observation (INO) | payer MEDICAID ==
[~2024-11-30] VITALS: Ht 167.6 cm; Wt 75.3 kg
--- NOTE | 2024-11-30 10:05 | DVH ---
CLINICAL HISTORY: -induced hypertension. COMPARISON: US BIOPHYSICAL PROFILE on DOS: 11/28/24, US BIOPHYSICAL PROFILE on DOS: 11/21/24 TECHNIQUE: biophysical profile was performed. Transabdominal sonographic images of the fetus we re obtained. FINDINGS: The fetus is in cephalic position. heart rate measures 126 BPM. Amniotic fluid index measures 26.2 cm. The placenta is anterior in position without visualized evidence for previa or abru ption. Cervix appears closed with cervical length measuring 3.4 cm. BPP profile is an overall score of 8/8, with 2/2 points for breathing, with at least one episode of breathing over a 30 second duration during a 30 minute observation, 2/2 points for m ovements, with 3 or more discrete body or limb movements, 2/2 points for tone, with one or more episodes of extremity extension with return to flexion, or opening and closing of hand, and 2/ 2 points for amniotic fluid, with at least 1 pocket of amniotic fluid that measures 2 cm in 2 perpend icular planes. IMPRESSION: 1. BPP score of 8/8. 2. Polyhydramnios with amniotic fluid index of 26.2.
[2024-11-30 11:50] LABS: Protein, Urine 13.3 mg/dL (1-14)
[2024-11-30 12:17] LABS: 24 Hr. Total Protein, Urine 332.5 mg/24 Hr (<149.1); Urine Total Volume, 24 Hours 2500.0 mL
--- NOTE | 2024-11-30 16:16 | DVHDS2 ---
Physician Discharge Progress N Final Diagnosis: [facility] 34wks Operations or Procedures: Operations or Procedures nst reactive reviwed,sono Condition on Discharge: Good Disposition: Home Discharge Instructions: Diet: Regular Activity: No Restrictions, As Tolerated Follow Up/Referral: Follow up tuesdayDecember 07 at 8:00 am [facility] [place]/BPP Medications: na Follow Up Care: Specialist: 3d Discharge Statement: "Patient was advised to return to the ER or call 911 if any headaches, dizziness, shortness of breath, chest pain, abdominal pain, bleeding, fevers, or worsening of medical condition. Patient was counseled about treatment plan, medications, possible side effects, patientverbalized understanding. All questions were answered to the best of my ability. This discharge took greater then 30 minutes in planning, reviewing documentation, counseling the patient, and discussing with other team members." Visit Coding OBGYN Date of Service: Nov 30, 2024 Billing Provider: OPHELIA FRENCH DO SEARCH MARKETING SPECIALIST Common Visit Codes: [id number] OBS CARE (HIGH) SEARCH MARKETING SPECIALIST Procedure Codes: 68195-95- NON-STRESS TEST OPHELIA FRENCH DO Nov 30, 2024 16:16
== END 2024-11-30 11:36 | disposition home or self-care (01) ==
LOC: UNDOADMOB 09:00 → LDRP 09:00
PROVIDERS: ADMIT Obstetrics & Gynecology; ATTEND Obstetrics & Gynecology
DX: O13.3 Gestational [pregnancy-induced] hypertension without significant proteinuria, third trimester (principal); Z3A.34 34 weeks gestation of pregnancy; Z79.899 Other long term (current) drug therapy
CPT/HCPCS: 59025; 76819; 81002; 84156; G0378

== ENCOUNTER 2024-12-05 08:40 | Observation (INO) | payer MEDICAID ==
--- NOTE | 2024-12-05 09:23 | DVH ---
BIOPHYSICAL PROFILE HISTORY: Lanie Comparison Study: US BIOPHYSICAL PROFILE on DOS: 11/30/24, US BIOPHYSICAL PROFILE on DOS: 11/28/24, US BIOPHYSICAL PROFILE on DOS: 11/21/24 TECHNIQUE: Multiple real-time grayscale sonographic images through the gravid uterus of the fetus wi th duplex Doppler color flow and M-mode spectral analysis FINDINGS: BIOPHYSICAL PROFILE: breathing score: 2 movement score: 2 tone score: 2 Quantitative MALINA score: 2 (MALINA: 18.92 Cm.) Total score: 8 The cervix is not visualized Single live fetus in cephalic presentation. heart rate 150.2 beats per minute. Anterior placenta without previa or abruption IMPRESSION: Biophysical profile score: 8
[2024-12-05 10:33] LABS: Hematocrit 29.9 % (36.0-46.0)
[2024-12-05 10:36] LABS: Hemoglobin 9.6 g/dL (12.2-16.2); Mean Corpuscular Hemoglobin 24.0 pg (28.0-32.0); Mean Corpuscular Volume 74.8 fL (80.0-100.0)
[2024-12-05 10:49] LABS: Alanine Aminotransferase 14 U/L (7-40); Anion Gap 9 (5-15); BUN/Creatinine Ratio 17.1 (10.0-20.0); Calcium 9.5 mg/dL (8.7-10.4); Carbon Dioxide 21 mmol/L (20-31); Glucose 94 mg/dL (74-106); Potassium 4.0 mmol/L (3.5-5.1); Sodium 137 mmol/L (136-145)
[2024-12-05 10:50] LABS: Albumin 3.8 g/dL (3.2-4.8); Alkaline Phosphatase 156 U/L (46-116); Bilirubin, Total 0.5 mg/dL (0.2-1.0); Blood Urea Nitrogen 7 mg/dL (9-23); Chloride 107 mmol/L (98-107); Total Protein 5.5 g/dL (5.7-8.2)
[2024-12-05] MEDS ORDERED: URSO300C2 PO (11:00)
[2024-12-05 11:42] LABS: Total Cells Counted 100.0 (100)
--- NOTE | 2024-12-05 12:08 | DVHDS2 ---
Physician Discharge Progress N Final Diagnosis: cholestasis of preg 34 wks Operations or Procedures: Operations or Procedures nst reactive revestiven murry Consultations: Consultations start actigal Condition on Discharge: Good Disposition: Home Discharge Instructions: Diet: Regular Activity: Light activity Activity comment: Pelvic Rest Medications: na Follow Up Care: Specialist: 4d Discharge Statement: "Patient was advised to return to the ER or call 911 if any headaches, dizziness, shortness of breath, chest pain, abdominal pain, bleeding, fevers, or worsening of medical condition. Patient was counseled about treatment plan, medications, possible side effects, patientverbalized understanding. All questions were answered to the best of my ability. This discharge took greater then 30 minutes in planning, reviewing docume ntation, counseling the patient, and discussing with other team members." Visit Coding OBGYN Date of Service: Dec 05, 2024 Billing Provider: OPHELIA FRENCH DO RECREATION AIDE Common Visit Codes: [id number] OBS CARE (HIGH) RECREATION AIDE Procedure Codes: 73641-47- NON-STRESS TEST OPHELIA FRENCH DO Dec 05, 2024 12:08
== END 2024-12-05 11:08 | disposition home or self-care (01) ==
LOC: UNDOADMOB 08:40 → LDRP 08:40 → UNDODISOB 11:08
PROVIDERS: ADMIT Obstetrics & Gynecology; ATTEND Obstetrics & Gynecology
DX: O26.643 Intrahepatic cholestasis of pregnancy, third trimester (principal); K83.1 Obstruction of bile duct; Z3A.34 34 weeks gestation of pregnancy; Z79.899 Other long term (current) drug therapy
CPT/HCPCS: 36415; 76819; 80053; 85007; 85027; G0378; 59025; 81002; 94760

== ENCOUNTER 2024-12-08 10:05 | Observation (INO) | payer MEDICAID ==
[~2024-12-08 10:05] MED LIST changes: +URSO300C2 PO
--- NOTE | 2024-12-08 12:18 | DVH ---
BIOPHYSICAL PROFILE HISTORY: GROVER TECHNIQUE: Multiple transabdominal real-time grayscale sonographic images through the gravid uterus of the fetus with duplex Doppler color flow and M-mode spectral analysis FINDINGS: BIOPHYSICAL PROFILE: breathing score: 2 movement score: 2 tone score: 2 Quantitative MALINA score: 2 (MALINA: 18.7 Cm.) Total score: 8/8 The cervix measures 3.5 cm in length. Single live fetus in cephalic presentation. heart rate 129 beats per minute. Anterior placenta without previa or abruption IMPRESSION: 1. Biophysical profile score: 8/8.
--- NOTE | 2024-12-09 06:40 | DVHDS2 ---
Discharge Summary Date of Admission Dec 08, 2024 at 10:05 Date of Discharge: Dec 08, 2024 Admitting Diagnosis 34 weeks Cholestasis of pregnancies, PT contractions no labor Brief Hx & Hospital Course: NST and US performed reassuring Operations or Procedures none Condition at Discharge: Good Final Diagnosis/Problems List PTL cholestasis of pregnancies Discharge Disposition: Home Discharge Instruct/Medications Diet: Regular Activity: Light activity Scheduled Cephalexin Monohydrate (Cephalexin), 1 TAB PO TID Nitrofurantoin Monohydrate Mac (Macrobid), 100 MG PO BID, (Reported) Vit W/ Ferrous Fumara ( One Daily), 1 TAB PO DAILY, (Reported) Ursodiol (Ursodiol), 300 MG PO BID, (Reported) Scheduled PRN Ferrous Sulfate (Ferrous Sulfate), 325 MG PO ONCE PRN for daily, (Reported) Miscellaneous Medications Nifedipine (Procardia Capsule), 10 MG PO, (Reported) Discharge Statement: "Patient was advised to return to the ER or call 911 if any headaches, dizziness, shortness of breath, chest pain, abdominal pain, bleeding, fevers, or worsening of medical condition. Patient was counseled about treatment plan, medications, possible side effects, patientverbalized understanding. All questions were answered to the best of my ability. This discharge took greater then 30 minutes in planning, reviewing documentation, counseling the patient, and discussing with other team members." ASSESSMENT ASSESSMENT Assessment Visit Coding OBN Date of Service: Dec 08, 2024 Billing Provider: KYMBERLY ALEGRIA DO CODING TECH Common Visit Codes: 99549-HFX/OBS SAME DATE (LOW), 37960-UHX/OBS SAME DATE (MOD), 18433-QYM/OBS SAME DATE (HIGH) CODING TECH Procedure Codes: 72019-05- NON-STRESS TEST KYMBERLY ALEGRIA DO Dec 09, 2024 06:40
== END 2024-12-08 12:06 | disposition home or self-care (01) ==
LOC: LDRP 10:05
PROVIDERS: ADMIT Obstetrics & Gynecology; ATTEND Obstetrics & Gynecology
DX: O26.643 Intrahepatic cholestasis of pregnancy, third trimester (principal); K83.1 Obstruction of bile duct; Z3A.34 34 weeks gestation of pregnancy; Z98.890 Other specified postprocedural states; Z79.899 Other long term (current) drug therapy
CPT/HCPCS: 59025; 76819; 81002; 82948; 94760; G0378

== ENCOUNTER 2024-12-12 08:26 | Observation (INO) | payer MEDICAID ==
[~2024-12-12] VITALS: Ht 167.6 cm; Wt 78.0 kg
--- NOTE | 2024-12-12 20:09 | DVH ---
BIOPHYSICAL PROFILE HISTORY: Cholestasis TECHNIQUE: Multiple transabdominal real-time grayscale sonographic images through the gravid uterus of the fetus with duplex Doppler color flow and M-mode spectral analysis FINDINGS: BIOPHYSICAL PROFILE: breathing score: 2 movement score: 2 tone score: 2 Quantitative MALINA score: 2 (MALINA: 19.54 Cm.) Total score: 8 The cervix is closed with cervical length of 3.74 cm Single live fetus in cephalic presentation. heart rate 152 beats per minute. Anterior placenta without previa or abruption IMPRESSION: Biophysical profile score: 8
--- NOTE | 2024-12-12 20:11 | DVHDS2 ---
Physician Discharge Progress N Final Diagnosis: testing for sunni/PTL Operations or Procedures: Operations or Procedures 19yo IUP@35.6wks VSS NST reactive FKC/PTL precautions reviewed Dr. Monique consulted, agrees with POC. Condition on Discharge: Stable Disposition: Home Discharge Instructions: Diet: Regular Activity: No Restrictions, As Tolerated Medications: see med list Follow Up Care: Specialist: f/u twice weekly for NST/BPP Discharge Statement: "Patient was advised to return to the ER or call 911 if any headaches, dizziness, shortness of breath, chest pain, abdominal pain, bleeding, fevers, or worsening of medical condition. Patient was counseled about treatment plan, medications, possible side effects, patientverbalized understanding. All questions were answered to the best of my ability. This discharge took greater then 30 minutes in planning, reviewing documentation, counseling the patient, and discussing with other team members." Visit Coding OBGYN Date of Service: Dec 12, 2024 Billing Provider: JASMYN WOODRUFF CNM EYEGLASS FITTER Common Visit Codes: [id number] OBS CARE (HIGH) EYEGLASS FITTER Procedure Codes: 54620-29- NON-STRESS TEST JASMYN WOODRUFF CNM Dec 12, 2024 20:11
== END 2024-12-12 20:15 | disposition home or self-care (01) ==
LOC: LDRP 19:05
PROVIDERS: ADMIT Obstetrics & Gynecology; ATTEND Obstetrics & Gynecology
DX: O60.03 Preterm labor without delivery, third trimester (principal); O26.643 Intrahepatic cholestasis of pregnancy, third trimester; K83.1 Obstruction of bile duct; Z3A.35 35 weeks gestation of pregnancy; Z98.890 Other specified postprocedural states; Z79.899 Other long term (current) drug therapy
CPT/HCPCS: 59025; 76819; 81002; 94760; G0378

== ENCOUNTER 2024-12-15 09:00 | Observation (INO) | payer MEDICAID ==
--- NOTE | 2024-12-15 10:12 | DVH ---
BIOPHYSICAL PROFILE HISTORY: sunni PTL TECHNIQUE: Multiple transabdominal real-time grayscale sonographic images through the gravid uterus o f the fetus with duplex doppler color flow and M-mode spectral analysis FINDINGS: BIOPHYSICAL PROFILE: breathing score: 2 movement score: 2 tone score: 2 Quantitative MALINA score: 2 (MALINA: 19.5 cm.) Total score: 8/8 Single live fetus in cephalic presentation. heart rate 139 beats per minute. Anterior placenta without previa or abruption Biophysical profile score 8/8 corresponding to an NOHEMI of 01/15/25 IMPRESSION: Biophysical profile score: 8/8
--- NOTE | 2024-12-16 07:44 | DVHDS2 ---
Physician Discharge Progress N Final Diagnosis: CHOLESTASIS OF PREG .,PTL 35WKS Operations or Procedures: Operations or Procedures NST REACTIVE REVIWED,SONO Condition on Discharge: Good Disposition: Home Discharge Instructions: Diet: Regular Activity: No Restrictions, As Tolerated Medications: NA Follow Up Care: Specialist: 3D Discharge Statement: "Patient was advised to return to the ER or call 911 if any headaches, dizziness, shortness of breath, chest pain, abdominal pain, bleeding, fevers, or worsening of medical condition. Patient was counseled about treatment plan, medications, possible side effects, patientverbalized understanding. All questions were answered to the best of my ability. This discharge took greater then 30 minutes in planning, reviewing documentation, counseling the patient, and discussing with other team members." Visit Coding OBGYN Date of Service: Dec 15, 2024 Billing Provider: OPHELIA FRENCH DO CHIP PERSON Common Visit Codes: [id number] INP/OBS CARE (HIGH) CHIP PERSON Procedure Codes: 41321-05- NON-STRESS TEST OPHELIA FRENCH DO Dec 16, 2024 07:44
== END 2024-12-15 11:50 | disposition home or self-care (01) ==
LOC: LDRP 09:00
PROVIDERS: ADMIT Obstetrics & Gynecology; ATTEND Obstetrics & Gynecology
DX: O26.643 Intrahepatic cholestasis of pregnancy, third trimester (principal); K83.1 Obstruction of bile duct; O60.03 Preterm labor without delivery, third trimester; Z3A.35 35 weeks gestation of pregnancy; Z98.890 Other specified postprocedural states; Z79.899 Other long term (current) drug therapy
CPT/HCPCS: 59025; 76819; 81002; G0378

== ENCOUNTER 2024-12-19 06:25 | Observation (INO) | payer MEDICAID ==
--- NOTE | 2024-12-19 08:20 | DVHDS2 ---
Physician Discharge Progress N Final Diagnosis: cholestasis 36wks Operations or Procedures: Operations or Procedures nst reactive reviwed,sono Condition on Discharge: Good Disposition: Home Discharge Instructions: Diet: Regular Activity: No Restrictions, As Tolerated Medications: na Follow Up Care: Specialist: 3d Discharge Statement: "Patient was advised to return to the ER or call 911 if any headaches, dizziness, shortness of breath, chest pain, abdominal pain, bleeding, fevers, or worsening of medical condition. Patient was counseled about treatment plan, medications, possible side effects, patientverbalized understanding. All questions were answered to the best of my ability. This discharge took greater then 30 minutes in planning, reviewing do cumentation, counseling the patient, and discussing with other team members." Visit Coding OBGYN Date of Service: Dec 19, 2024 Billing Provider: OPHELIA FRENCH DO BAKERY HELPER Common Visit Codes: [id number] INP/OBS CARE (HIGH) BAKERY HELPER Procedure Codes: 16059-96- NON-STRESS TEST OPHELIA FRENCH DO Dec 19, 2024 08:20
--- NOTE | 2024-12-19 08:57 | DVH ---
BIOPHYSICAL PROFILE HISTORY: Lanie/PTL TECHNIQUE: Multiple transabdominal real-time grayscale sonographic images through the gravid uterus of the fetus with duplex Doppler color flow and M-mode spectral analysis FINDINGS: BIOPHYSICAL PROFILE: breathing score: 2 movement score: 2 tone score: 2 Quantitative MALINA score: 2 (MALINA: 23.4 Cm.) Total score: 8 The cervix measures 1.8 cm with mild funneling. Single live fetus in cephalic presentation. heart rate 148 beats per minute. Grade III anterior placenta without previa or abruption IMPRESSION: Biophysical profile score: 8/8 MALINA equals 23.4 cm
== END 2024-12-19 08:38 | disposition home or self-care (01) ==
LOC: LDRP 07:25 → UNDOADMOB 07:25 → LDRP 07:31
PROVIDERS: ADMIT Obstetrics & Gynecology; ATTEND Obstetrics & Gynecology
DX: O26.643 Intrahepatic cholestasis of pregnancy, third trimester (principal); K83.1 Obstruction of bile duct; Z3A.36 36 weeks gestation of pregnancy; Z79.899 Other long term (current) drug therapy; Z98.890 Other specified postprocedural states
CPT/HCPCS: 59025; 76819; 81002; 94760; G0378

== ENCOUNTER 2024-12-22 06:37 | Observation (INO) | payer MEDICAID ==
[~2024-12-22 06:37] MED LIST changes: -NIFE10CA52 PO
--- NOTE | 2024-12-22 09:19 | DVHDS2 ---
Physician Discharge Progress N Final Diagnosis: Cholestasis of Threatened labor Secondary Diagnosis: Encounter for surveillance Operations or Procedures: Operations or Procedures NST/BPP MALINA , reviewed WNL Commentary: Commentary NOT in labor Condition on Discharge: Stable Disposition: Home Discharge Instructions: Diet: Regular Activity: Light activity Follow Up/Referral: As scheduled Medications: NA Follow Up Care: Discharge Statement: "Patient was advised to return to the ER or call 911 if any headaches, dizziness, shortness of breath, chest pain, abdominal pain, bleeding, fevers, or worsening of medical condition. Patient was counseled about treatment plan, medications, possible side effects, patientverbalized understanding. All questions were answered to the best of my ability. This discharge took greater then 30 minutes in planning, reviewing documentation, counseling the patient, and discussing with other team members." Visit Coding OBGYN Date of Service: Dec 22, 2024 Billing Provider: VIDHYA DUMONT DO FIELD CROP FARMWORKER Common Visit Codes: 07271-ULP/OBS SAME DATE (MOD) VIDHYA DUMONT DO Dec 22, 2024 09:19
--- NOTE | 2024-12-22 10:24 | DVH ---
BIOPHYSICAL PROFILE HISTORY: Cholestasis TECHNIQUE: Multiple transabdominal real-time grayscale sonographic images through the gravid uterus o f the fetus with duplex doppler color flow and M-mode spectral analysis FINDINGS: BIOPHYSICAL PROFILE: breathing score: 2 movement score: 2 tone score: 2 Quantitative MALINA score: 2 (MALINA: 17.7 cm.) Total score: 8/8 Single live fetus in cephalic presentation. heart rate 136 beats per minute. Anterior placenta without previa or abruption Biophysical profile score 8/8 corresponding to an NOHEMI of 01/15/25 IMPRESSION: Biophysical profile score: 8/8
== END 2024-12-22 10:28 | disposition home or self-care (01) ==
LOC: LDRP 09:04
PROVIDERS: ADMIT Obstetrics & Gynecology; ATTEND Obstetrics & Gynecology
DX: O47.03 False labor before 37 completed weeks of gestation, third trimester (principal); O26.643 Intrahepatic cholestasis of pregnancy, third trimester; K76.89 Other specified diseases of liver; Z3A.36 36 weeks gestation of pregnancy; Z79.899 Other long term (current) drug therapy
CPT/HCPCS: 59025; 76819; 81002; 94760; G0378

== ENCOUNTER 2024-12-26 07:05 | Inpatient (IN) | payer MEDICAID ==
[~2024-12-26] VITALS: Ht 167.6 cm; Wt 79.8 kg
[2024-12-26] MEDS ORDERED: LIDOCAINE 2%HCL (LOCAL ANESTH.) INJ 20ML MDV IJ PRN (07:15)
[2024-12-26] MEDS ORDERED: NALBUPHINE HCL 10 MG/1ml INJECTION IV PRN (07:15)
[2024-12-26 08:08] LABS: Hemoglobin 10.2 g/dL (12.2-16.2)
[2024-12-26 08:09] LABS: INR 0.93 (0.9-1.15); Partial Thromboplastin Time 24.2 SEC (24.5-34.5); Prothrombin Time 9.9 sec (9.3-11.8)
[2024-12-26 08:12] LABS: Hematocrit 31.9 % (36.0-46.0); Mean Corpuscular Hemoglobin 23.8 pg (28.0-32.0); Mean Corpuscular Volume 74.4 fL (80.0-100.0); Nucleated Red Blood Cells % 0.8 %
[2024-12-26 08:19] LABS: Alanine Aminotransferase 11 U/L (7-40); Albumin 4.6 g/dL (3.2-4.8); Anion Gap 11 (5-15); BUN/Creatinine Ratio 11.7 (10.0-20.0); Bilirubin, Total 0.6 mg/dL (0.2-1.0); Calcium 9.4 mg/dL (8.7-10.4); Carbon Dioxide 20 mmol/L (20-31); Potassium 3.5 mmol/L (3.5-5.1); Sodium 138 mmol/L (136-145); Total Protein 6.5 g/dL (5.7-8.2)
[2024-12-26 08:21] LABS: Alkaline Phosphatase 230 U/L (46-116); Blood Urea Nitrogen 7 mg/dL (9-23); Chloride 107 mmol/L (98-107); Glucose 108 mg/dL (74-106)
[2024-12-26] MEDS: LACTATED RINGER'S 1,000 ML IV SCH (08:27)
[2024-12-26 09:41] LABS: Urine Protein, UAD Negative (Negative)
[2024-12-26 10:02] LABS: Amphetamine Screen, Urine Neg (NEGATIVE); Barbiturate Scree,Urine Neg (NEGATIVE); Benzodiazephine Screen, Urine Neg (NEGATIVE); Cannabinoid Screen, Urine Neg (NEGATIVE); Cocaine Screen, Urine Neg (NEGATIVE); Opiate Scree,Urine Neg (NEGATIVE); Phencyclidine Screen, Urine Neg (NEGATIVE)
--- NOTE | 2024-12-26 13:35 | DVHHP2 ---
OB CC & HPI Date Date of Admission: Dec 26, 2024 Patient Identification: : 2 Para: 0 EDC: Jan 15, 2025 EGA: 37 Chief Complaints: Reason for admission: induction of labor Admission Nurse Assessment Rev: No History of Present Complaints pt is admitted for cholestasis of preg ,pt has been on actigall tid but still itching Past Medical History Cardiac: No pertinent Hx Pulmonary: No pertinent Hx Central Nervous System: No pertinent Hx GI: No pertinent Hx Hemotology/Oncology: No pertinent Hx Hepatobiliary: No pertinent Hx Psychiatric: No pertinent Hx Musculoskeletal: No pertinent Hx Rheumotologic: No pertinent Hx Infectious Disease: No peritnent Hx ENT: No pertinent Hx Renal/: No pertinent Hx Endocrine: No pertinent Hx Dermatology: No pertinent Hx Past Surgical History: No pertinent Hx OB History OB History Care: Good Care Ultrasounds: Normal mid trimester US Obstetrical Complications: None, Other (cholestasis of preg) Medical Complications: None Allergies: Coded Allergies: NO KNOWN ALLERGIES (Unverified , 11/05/24) Home Meds Active Scripts Cephalexin Monohydrate (Cephalexin) 500 Mg Tab, 1 TAB PO TID for 5 Days, #15 TAB Prov:VIANEY MALIK DO 08/22/24 Reported Medications Ursodiol (Ursodiol) 300 Mg Cap, 300 MG PO BID for 30 Days, #60 MG 1 Refill 12/05/24 Nitrofurantoin Monohydrate Mac (Macrobid) 100 Mg Cap, 100 MG PO BID for 7 Days, CAP 10/24/24 Ferrous Sulfate (Ferrous Sulfate) 325 Mg Tab, 325 MG PO ONCE PRN for daily for 30 Days, MG 10/07/24 Vit W/ Ferrous Fumara ( One Daily) Daily Tab, 1 TAB PO DAILY, #90 TAB 3 Refills 09/21/24 Discontinued Reported Medications Nifedipine (PROCARDIA CAPSULE) 10 Mg Cp, 10 MG PO, CAP 11/21/24 Current Medications Current Medications Medications (Trade) Dose Ordered Sig/Lorri Route PRN Reason Start Time Stop Time Status Last Admin Lactated Ringer's 1,000 ml @ 125 mls/hr Q8H IV 12/26/24 07:15 12/26/24 08:27 Nalbuphine HCl (Nubain) 10 mg Q4HP PRN IV MODERATE PAIN (4-6 PAIN SCALE) 12/26/24 07:15 Witch Eleni (Tucks) 1 pad PRN PRN TOP PERINEAL AREA DISCOMFORT 12/26/24 07:15 Sodium Lauryl Sulfate (Phisoderm) 240 ml PRN PRN TOP PERINEAL AREA DISCOMFORT 12/26/24 07:15 Benzocaine (Dermoplast) 1 applic PRN PRN TOP PERINEAL AREA DISCOMFORT 12/26/24 07:15 Misoprostol (Cytotec) 50 mcg Q4HPRN PRN PO CERVICAL RIPENING 12/26/24 07:15 12/26/24 12:29 Lidocaine HCl (Xylocaine) 20 ml ONCE PRN IJ PERINEAL AREA DISCOMFORT 12/26/24 07:15 Family & Social History Family/Social History Blood Type: Unknown Rubella: unknown RPR/VDRL: Negative GBS Status: Unknown HBsAG: Negative Review of Systems Constitutional: No symptom reported Ears, Nose, & Throat: No symptom reported Eyes: No symptom reported Pulmonary/Respiratory: No symptom reported Cardiovascular: No symptom reported Gastrointestinal: No symptom reported Genitourinary: No symptom reported Musculoskeletal: No symptom reported Skin: No symptom reported Psychiatric: No symptom reported Endocrine: No symptom reported Hemotologic/Lymphatic: No symptom reported OB Admission Exam Physical Exam HEENT: TMs Normal, Fontanelles Normal, Nasal Mucosa Normal, Eyes non-injected, Oropharynx Normal, PERRLA, Moist Membranes, EOMI Heart: Rhythm Normal Lungs: Clear Abdomen: Non tender Extremities: Normal Reflexes: Normal Cervical Dilatation: 1cm Effacement: 25% Station: -3 Membranes: Intact Heart Rate: 130's Accelerations: Accelerations Present Decelerations: No Decelerations Short Term Variability: Present Court Reporter Variability: Average (6-25) Contractions on Admission: >10 Minutes Apart Intensity: Mild OB Plan Plan Admitting Diagnosis: Induction of labor for c holestasis of preg Plan: Induction Induction Methd: Misoprostol protocol Other Plan: informed consent obtained Visit Coding OBGYN Date of Service: Dec 26, 2024 Billing Provider: OPHELIA FRENCH DO RECREATIONAL VEHICLE REPAIRER Common Visit Codes: 33376-ADAVELX OBS CARE (HIGH) RECREATIONAL VEHICLE REPAIRER Procedure Codes: 65880-38- NON-STRESS TEST OPHELIA FRENCH DO Dec 26, 2024 13:35
--- NOTE | 2024-12-26 13:37 | DVHPN2 ---
Chief Complaints Patient reports: No new complaints Nursing reports: No new complaints Objective Medications Current Medications Medications (Trade) Dose Ordered Sig/Lorri Route PRN Reason Start Time Stop Time Status Last Admin Benzocaine (Dermoplast) 1 applic PRN PRN TOP PERINEAL AREA DISCOMFORT 12/26/24 07:15 Lactated Ringer's 1,000 ml @ 125 mls/hr Q8H IV 12/26/24 07:15 12/26/24 08:27 Lidocaine HCl (Xylocaine) 20 ml ONCE PRN IJ PERINEAL AREA DISCOMFORT 12/26/24 07:15 Misoprostol (Cytotec) 50 mcg Q4HPRN PRN PO CERVICAL RIPENING 12/26/24 07:15 12/26/24 12:29 Nalbuphine HCl (Nubain) 10 mg Q4HP PRN IV MODERATE PAIN (4-6 PAIN SCALE) 12/26/24 07:15 Sodium Lauryl Sulfate (Phisoderm) 240 ml PRN PRN TOP PERINEAL AREA DISCOMFORT 12/26/24 07:15 Witch Eelni (Tucks) 1 pad PRN PRN TOP PERINEAL AREA DISCOMFORT 12/26/24 07:15 Others exam unchanged Studies Laboratory Tests 12/26/24 07:18 Test 12/26/24 07:18 Range/Units Serum Glucose 108 H 74-106 mg/dL Ass/Plan Assessment iol for cholestasis of preg Plan rec 2 cytotec Visit Coding OBGYN Date of Service: Dec 26, 2024 Billing Provider: OPHELIA FRENCH DO UNDERGRADUATE INTERN Common Visit Codes: [id number] OBS CARE (HIGH) UNDERGRADUATE INTERN Procedure Codes: 85044-64- NON-STRESS TEST OPHELIA FRENCH DO Dec 26, 2024 13:37
[2024-12-26] MEDS: URSODIOL 300 MG CAP PO SCH ×2 (15:58→23:53)
--- NOTE | 2024-12-26 18:46 | DVHPN2 ---
OB Labor Progress Note Date and Time Seen Date Seen: Dec 26, 2024 Time Seen: 15:42 Subjective Patient reports: No new complaints Subjective Comment 19yo IUP@37.1wks presents in OB unit for IOL for cholestasis. Denies LOF/VB/ZEPEDA/vision changes/RUQ pain. Endorses +FM. Objective Vital Signs VSS see CPN Monitoring Method Monitoring Method: External Heart Rate Heart Rate Baseline: 140 Heart Rate Variability: Moderate Presence of FHR Accelerations: Yes Presence of FHR Decelerations: No Changes in Trends of Patterns: No Are all 5 Components of the FH: Yes Contractions Contractions Frequency: Occasional (2-5/10) Duration of Contraction: 90 Contractions Intensity: Mild Contractions Resting Tone: Relaxed Membranes Membranes: Intact Vaginal Exam Vaginal Exam Dilation: 1 Vaginal Exam Effacement: 30 Vaginal Exam Station: -2 Vaginal Exam Presentation: VTX Vaginal Exam Show: None Medications Medications - Pitocin: No Medication - Epidural: No Medication - Other s/p PO cytotec x 2 Lab Results Lab Results Current Medications Medications (Trade) Dose Ordered Sig/Lorri Start Time Stop Time Status Last Admin Dose Admin Lactated Ringer's 1,000 ml @ 125 mls/hr Q8H 12/26/24 07:15 12/26/24 16:31 125 MLS/HR Nalbuphine HCl (Nubain) 10 mg Q4HP PRN 12/26/24 07:15 Witch Eleni (Tucks) 1 pad PRN PRN 12/26/24 07:15 12/26/24 20:22 1 PAD Sodium Lauryl Sulfate (Phisoderm) 240 ml PRN PRN 12/26/24 07:15 12/26/24 20:22 240 ML Benzocaine (Dermoplast) 1 applic PRN PRN 12/26/24 07:15 12/26/24 20:22 1 APPLIC Misoprostol (Cytotec) 50 mcg Q4HPRN PRN 12/26/24 07:15 12/26/24 20:51 50 MCG Lidocaine HCl (Xylocaine) 20 ml ONCE PRN 12/26/24 07:15 Oxytocin 500 ml @ 999 mls/hr Q31M ONCE 12/26/24 07:15 12/26/24 07:45 DC Oxytocin 500 ml @ 125 mls/hr Q4H ONCE 12/26/24 07:45 12/26/24 11:44 DC Ursodiol (Actigall) 300 mg TID 12/26/24 16:00 12/26/24 20:18 DC 12/26/24 15:58 300 MG Ursodiol (Actigall) 300 mg TID 12/27/24 00:00 UNV Laboratory Tests Test 12/26/24 09:22 12/26/24 07:18 Range/Units Urine Color Light-yellow Yellow Urine Clarity Clear Clear Urine pH 6.5 5.0-9.0 Urine Specific [place] 1.009 1.001-1.035 Urine Protein Negative Negative Urine Ketones Negative Negative Urine Blood Negative Negative /uL Urine Nitrite Negative Negative Urine Bilirubin Negative Negative Urine Urobilinogen Normal Negative mg/dL Urine Leukocyte Esterase Trace Negative /uL Urine RBC None seen 0 - 4 /hpf Urine Microscopic WBC 7 H 0-5 /HPF Urine Squamous Epithelial Cells Few <5 /hpf Urine Bacteria None seen None Seen /hpf Urine Glucose Normal Normal mg/dL Urine Opiates Screen Neg NEGATIVE Urine Fentanyl Screen Neg NEGATIVE Urine Barbiturates Screen Neg NEGATIVE Urine Phencyclidine Screen Neg NEGATIVE Urine Amphetamines Screen Neg NEGATIVE Urine Benzodiazepines Screen Neg NEGATIVE Urine Cocaine Screen Neg NEGATIVE Urine Cannabinoids Screen Neg NEGATIVE White Blood Count 13.9 H 4.4-10.8 10^3/uL Red Blood Count 4.29 4.0-5.20 10^6/uL Hemoglobin 10.2 L 12.2-16.2 g/dL Hematocrit 31.9 L 36.0-46.0 % Mean Corpuscular Volume 74.4 L 80.0-100.0 fL Mean Corpuscular Hemoglobin 23.8 L 28.0-32.0 pg Mean Corpuscular Hemoglobin Concent 32.0 32.0-36.0 g/dL Red Cell Distribution Width 21.1 H 11.8-14.3 % Platelet Count 159 140-450 10^3/uL Mean Platelet Volume 11.6 H 6.9-10.8 fL Neutrophils (%) (Auto) 76.5 37.0-80.0 % Lymphocytes (%) (Auto) 15.5 10.0-50.0 % Monocytes (%) (Auto) 5.4 0.0-12.0 % Eosinophils (%) (Auto) 2.1 0.0-7.0 % Basophils (%) (Auto) 0.5 0.0-2.0 % Neutrophils # (Auto) 10.6 H 1.6-8.6 10 ^3/uL Lymphocytes # (Auto) 2.2 0.4-5.4 10 ^3/uL Monocytes # (Auto) 0.8 0-1.3 10 ^3/uL Eosinophils # (Auto) 0.3 0-0.8 10 ^3/uL Basophils # (Auto) 0.1 0-0.2 10 ^3/uL Nucleated Red Blood Cells 0.8 % Prothrombin Time 9.9 9.3-11.8 sec Prothrombin Time INR 0.93 0.9-1.15 Activated Partial Thromboplast Time 24.2 L 24.5-34.5 SEC Sodium Level 138 136-145 mmol/L Potassium Level 3.5 3.5-5.1 mmol/L Chloride Level 107 98-107 mmol/L Carbon Dioxide Level 20 20-31 mmol/L Anion Gap 11 5-15 Blood Urea Nitrogen 7 L 9-23 mg/dL Creatinine 0.60 0.550-1.02 mg/dL Glomerular Filtration Rate Calc 132 >90 mL/min BUN/Creatinine Ratio 11.7 10.0-20.0 Serum Glucose 108 H 74-106 mg/dL Calcium Level 9.4 8.7-10.4 mg/dL Total Bilirubin 0.6 0.2-1.0 mg/dL Aspartate Amino Transferase (AST) 19 13-40 U/L Alanine Aminotransferase (ALT) 11 7-40 U/L Alkaline Phosphatase 230 H 46-116 U/L Total Protein 6.5 5.7-8.2 g/dL Albumin 4.6 3.2-4.8 g/dL Treponema pallidum Antibody Non-reactive Negative Hepatitis C Antibody Negative Negative Assessment Assessment A: 19 yo IUP @ 37.1wk IOL for cholestasis GBS negative Intact membrane Cat 1 EFM Plan Plan P: Discussed potential of placing a cervical balloon on next exam if the cervix is more dilated with pt. Pt agrees with POC. Continue PO cytotec Continue with actigal 300mg PO TID monitoring per order Pain mgmt PRN Frequent position changes in and out of bed encouraged Limit SVE unless necessary Intrauterine resuscitation PRN Anticipate Plan discussed with: Patient, Other (sig other) Visit Coding OBGYN Date of Service: Dec 26, 2024 Billing Provider: JASMYN WOODRUFF CNM PUBLIC HEALTH AIDES TEACHER Common Visit Codes: [id number] INP/OBS CARE(HIGH) RONNA INTERIANO Dec 26, 2024 18:46
[2024-12-26] MEDS: PHISODERM TOP SOLN 240ML BTL TOP PRN (20:22)
[2024-12-26] MEDS: WITCH HAZEL-GLYCERIN PAD TOP PRN (20:22)
[2024-12-26] MEDS: DERMOPLAST 60ML BOTTLE TOP PRN (20:22)
[2024-12-26] MEDS ORDERED: NALOXONE HCL 0.4 MG/ML VIAL IV ONE (21:00)
[2024-12-26] MEDS ORDERED: LIDOCAINE HCL 2 %PF INJ 10ML AMP IJ ONE (21:00)
--- NOTE | 2024-12-26 21:26 | DVHPN2 ---
OB Labor Progress Note Date and Time Seen Date Seen: Dec 26, 2024 Time Seen: 20:30 Subjective Patient reports: Feels worse (5/10 pain) Subjective Comment S: 19yo IUP@37.1wks presents in OB unit for IOL for cholestasis. Denies LOF/VB/ZEPEDA/vision changes/RUQ pain. Endorses +FM. Objective Vital Signs VSS Monitoring Method Monitoring Method: External Heart Rate Heart Rate Baseline: 145 Heart Rate Variability: Minimal Presence of FHR Accelerations: Yes Presence of FHR Decelerations: No Changes in Trends of Patterns: No Are all 5 Components of the FH: Yes Contractions Contractions Frequency: Occasional (2-6/10) Duration of Contraction: 90 Contractions Intensity: Mild Contractions Resting Tone: Relaxed Membranes Membranes: Intact Vaginal Exam Vag Exam Deferred: No Vaginal Exam Dilation: 2 Vaginal Exam Effacement: 40 Vaginal Exam Station: -2 Vaginal Exam Presentation: VTX Vaginal Exam Show: None Medications Medications - Pitocin: No Medication - Epidural: No Medication - Other s/p PO cytotec x 3 Lab Results Lab Results Current Medications Medications (Trade) Dose Ordered Sig/Lorri Start Time Stop Time Status Last Admin Dose Admin Lactated Ringer's 1,000 ml @ 125 mls/hr Q8H 12/26/24 07:15 12/26/24 16:31 125 MLS/HR Nalbuphine HCl (Nubain) 10 mg Q4HP PRN 12/26/24 07:15 Witch Eleni (Tucks) 1 pad PRN PRN 12/26/24 07:15 12/26/24 20:22 1 PAD Sodium Lauryl Sulfate (Phisoderm) 240 ml PRN PRN 12/26/24 07:15 12/26/24 20:22 240 ML Benzocaine (Dermoplast) 1 applic PRN PRN 12/26/24 07:15 12/26/24 20:22 1 APPLIC Misoprostol (Cytotec) 50 mcg Q4HPRN PRN 12/26/24 07:15 12/26/24 20:51 50 MCG Lidocaine HCl (Xylocaine) 20 ml ONCE PRN 12/26/24 07:15 Oxytocin 500 ml @ 999 mls/hr Q31M ONCE 12/26/24 07:15 12/26/24 07:45 DC Oxytocin 500 ml @ 125 mls/hr Q4H ONCE 12/26/24 07:45 12/26/24 11:44 DC Ursodiol (Actigall) 300 mg TID 12/26/24 16:00 12/26/24 20:18 DC 12/26/24 15:58 300 MG Ursodiol (Actigall) 300 mg TID 12/27/24 00:00 UNV Laboratory Tests Test 12/26/24 09:22 12/26/24 07:18 Range/Units Urine Color Light-yellow Yellow Urine Clarity Clear Clear Urine pH 6.5 5.0-9.0 Urine Specific [place] 1.009 1.001-1.035 Urine Protein Negative Negative Urine Ketones Negative Negative Urine Blood Negative Negative /uL Urine Nitrite Negative Negative Urine Bilirubin Negative Negative Urine Urobilinogen Normal Negative mg/dL Urine Leukocyte Esterase Trace Negative /uL Urine RBC None seen 0 - 4 /hpf Urine Microscopic WBC 7 H 0-5 /HPF Urine Squamous Epithelial Cells Few <5 /hpf Urine Bacteria None seen None Seen /hpf Urine Glucose Normal Normal mg/dL Urine Opiates Screen Neg NEGATIVE Urine Fentanyl Screen Neg NEGATIVE Urine Barbiturates Screen Neg NEGATIVE Urine Phencyclidine Screen Neg NEGATIVE Urine Amphetamines Screen Neg NEGATIVE Urine Benzodiazepines Screen Neg NEGATIVE Urine Cocaine Screen Neg NEGATIVE Urine Cannabinoids Screen Neg NEGATIVE White Blood Count 13.9 H 4.4-10.8 10^3/uL Red Blood Count 4.29 4.0-5.20 10^6/uL Hemoglobin 10.2 L 12.2-16.2 g/dL Hematocrit 31.9 L 36.0-46.0 % Mean Corpuscular Volume 74.4 L 80.0-100.0 fL Mean Corpuscular Hemoglobin 23.8 L 28.0-32.0 pg Mean Corpuscular Hemoglobin Concent 32.0 32.0-36.0 g/dL Red Cell Distribution Width 21.1 H 11.8-14.3 % Platelet Count 159 140-450 10^3/uL Mean Platelet Volume 11.6 H 6.9-10.8 fL Neutrophils (%) (Auto) 76.5 37.0-80.0 % Lymphocytes (%) (Auto) 15.5 10.0-50.0 % Monocytes (%) (Auto) 5.4 0.0-12.0 % Eosinophils (%) (Auto) 2.1 0.0-7.0 % Basophils (%) (Auto) 0.5 0.0-2.0 % Neutrophils # (Auto) 10.6 H 1.6-8.6 10 ^3/uL Lymphocytes # (Auto) 2.2 0.4-5.4 10 ^3/uL Monocytes # (Auto) 0.8 0-1.3 10 ^3/uL Eosinophils # (Auto) 0.3 0-0.8 10 ^3/uL Basophils # (Auto) 0.1 0-0.2 10 ^3/uL Nucleated Red Blood Cells 0.8 % Prothrombin Time 9.9 9.3-11.8 sec Prothrombin Time INR 0.93 0.9-1.15 Activated Partial Thromboplast Time 24.2 L 24.5-34.5 SEC Sodium Level 138 136-145 mmol/L Potassium Level 3.5 3.5-5.1 mmol/L Chloride Level 107 98-107 mmol/L Carbon Dioxide Level 20 20-31 mmol/L Anion Gap 11 5-15 Blood Urea Nitrogen 7 L 9-23 mg/dL Creatinine 0.60 0.550-1.02 mg/dL Glomerular Filtration Rate Calc 132 >90 mL/min BUN/Creatinine Ratio 11.7 10.0-20.0 Serum Glucose 108 H 74-106 mg/dL Calcium Level 9.4 8.7-10.4 mg/dL Total Bilirubin 0.6 0.2-1.0 mg/dL Aspartate Amino Transferase (AST) 19 13-40 U/L Alanine Aminotransferase (ALT) 11 7-40 U/L Alkaline Phosphatase 230 H 46-116 U/L Total Protein 6.5 5.7-8.2 g/dL Albumin 4.6 3.2-4.8 g/dL Treponema pallidum Antibody Non-reactive Negative Hepatitis C Antibody Negative Negative Assessment Assessment 19yo IUP@37.1wks Induction of Labor for cholestasis Category II EFM Intact Membranes GBS negative Plan Plan P: Rodas balloon placed with 60 ml of sterile fluid with pt consent. Continue cytotec PO monitoring per order Pain mgmt PRN Frequent position changes in and out of bed encouraged Limit SVE unless necessary Intrauterine resuscitation PRN Anticipate Plan discussed with: Patient, Other (sig other) Visit Coding OBGYN Date of Service: Dec 26, 2024 Billing Provider: JASMYN WOODRUFF CNM TANK TRUCK LOADER Common Visit Codes: [id number] INP/OBS CARE(HIGH) RONNA INTERIANO Dec 26, 2024 21:26
[2024-12-26] MEDS: ROPIVACAINE HCL 100 ML ONE (22:44)
--- NOTE | 2024-12-26 22:44 | EPIDURAL ---
Anesthesia Procedural Note - Epidural Informed consent obtained?: Yes Medication Administered: Fentanyl 100 mcg Sterile prept drape: Yes Spinal level of insertion: L3-L4 Test dose of lidocaine & Epine: Negative Infusion started: Yes Start time: :49 (2243) End time: 15:25 Procedure description Procedure description: 19 y/o with AOG 37/1 weeks, admitted for induction of labor secondary to cholestasis of . She is requesting PCEA for labor and delivery. Epidural catheter placed and infusion started after negative test dose x 2. Patient reports pain score of 7, before epidural placement to pain score of 0 after placement. At 6 cm dilation and in active labor, around 1525 the following day, December 27, Dr. Jenkins responded to a call that patient reports that "epidural does not seem to work anymore." Dr. Jenkins removed the existing epidural catheter (with tip intact) and replaced it with a new one. Patient reports that "epidural is working again." Total epidural time: 2148 - 1524 (December 27) Total face to face time: 2148 - 2243 TAYE GALVEZ MD Dec 26, 2024 22:44
[2024-12-26] MEDS: fentaNYL CITRATE 100 MCG/2 ML VL IV ONE (22:59)
[2024-12-27] MEDS ORDERED: ONDANSETRON HCL 4 MG/2 ML VIAL IV PRN (01:15)
[2024-12-27] MEDS: ROPIVACAINE HCL 100 ML ONE ×3 (05:21→15:02)
[2024-12-27] MEDS ORDERED: TERBUTALINE SULFATE 1 MG/ML 1ML VIAL SC PRN (05:45)
[2024-12-27] MEDS: LACT. RINGERS/OXYTOCIN 20UNITS 1,000 ML IV SCH (06:44)
--- NOTE | 2024-12-27 07:06 | DVHPN2 ---
Chief Complaints Patient reports: No new complaints, Feels worse (5/10 pain) Nursing reports: No new complaints, No abdominal pain Objective Vitals Vital Signs Date Time Temp Pulse Resp B/P (MAP) Pulse Ox O2 Delivery O2 Flow Rate FiO2 12/26/24 22:59 130/80 Medications Current Medications Medications (Trade) Dose Ordered Sig/Lorri Route PRN Reason Start Time Stop Time Status Last Admin Benzocaine (Dermoplast) 1 applic PRN PRN TOP PERINEAL AREA DISCOMFORT 12/26/24 07:15 12/26/24 20:22 Lactated Ringer's 1,000 ml @ 125 mls/hr Q8H IV 12/26/24 07:15 12/26/24 16:31 Lidocaine HCl (Xylocaine) 20 ml ONCE PRN IJ PERINEAL AREA DISCOMFORT 12/26/24 07:15 Misoprostol (Cytotec) 50 mcg Q4HPRN PRN PO CERVICAL RIPENING 12/26/24 07:15 12/27/24 01:01 Nalbuphine HCl (Nubain) 10 mg Q4HP PRN IV MODERATE PAIN (4-6 PAIN SCALE) 12/26/24 07:15 Ondansetron HCl (Zofran) 4 mg Q4HPRN PRN IV NAUSEA / VOMITING 12/27/24 01:15 Oxytocin 1,000 ml @ 6 ml/hr Q24H IV 12/27/24 05:45 12/27/24 06:44 Sodium Lauryl Sulfate (Phisoderm) 240 ml PRN PRN TOP PERINEAL AREA DISCOMFORT 12/26/24 07:15 12/26/24 20:22 Terbutaline Sulfate (Brethine Inj) 0.25 mg ONCE PRN SC Uterine tachysystole 12/27/24 05:45 Ursodiol (Actigall) 300 mg TID PO 12/27/24 00:00 12/26/24 23:53 Witch Eleni (Tucks) 1 pad PRN PRN TOP PERINEAL AREA DISCOMFORT 12/26/24 07:15 12/26/24 20:22 Others ve-4cm/60/-1 Studies Laboratory Tests 12/26/24 07:18 Test 12/26/24 07:18 Range/Units Serum Glucose 108 H 74-106 mg/dL Ass/Plan Assessment iol for cholestasis of preg Plan cont with pitocin Visit Coding OBGYN Date of Service: Dec 27, 2024 Billing Provider: OPHELIA FRENCH DO PRODUCT SAFETY TECHNICAL ASSISTANT Common Visit Codes: [id number] INP/OBS CARE (HIGH) PRODUCT SAFETY TECHNICAL ASSISTANT Procedure Codes: 67503-54- NON-STRESS TEST OPHELIA FRENCH DO Dec 27, 2024 07:06
[2024-12-27] MEDS: LACTATED RINGER'S 1,000 ML IV ONE (10:51)
--- NOTE | 2024-12-27 13:13 | DVHPN2 ---
Chief Complaints Patient reports: No new complaints, Feels worse (5/10 pain) Nursing reports: No new complaints, No abdominal pain Objective Vitals Vital Signs Date Time Temp Pulse Resp B/P (MAP) Pulse Ox O2 Delivery O2 Flow Rate FiO2 12/26/24 22:59 130/80 Medications Current Medications Medications (Trade) Dose Ordered Sig/Lorri Route PRN Reason Start Time Stop Time Status Last Admin Ondansetron HCl (Zofran) 4 mg Q4HPRN PRN IV NAUSEA / VOMITING 12/27/24 01:15 Oxytocin 1,000 ml @ 6 ml/hr Q24H IV 12/27/24 05:45 12/27/24 06:44 Terbutaline Sulfate (Brethine Inj) 0.25 mg ONCE PRN SC Uterine tachysystole 12/27/24 05:45 Ursodiol (Actigall) 300 mg TID PO 12/27/24 00:00 12/27/24 08:37 Others 4cm/60/-1 Studies Laboratory Tests 12/26/24 07:18 Test 12/26/24 07:18 Range/Units Serum Glucose 108 H 74-106 mg/dL Ass/Plan Assessment iol for cholestasis of preg Plan arom done clear fld,iupc inserted cont with pitocin Visit Coding OBGYN Date of Service: Dec 27, 2024 Billing Provider: OPHELIA FRENCH DO SENIOR PROGRAMMER Common Visit Codes: [id number] INP/OBS CARE(HIGH) SENIOR PROGRAMMER Procedure Codes: 81508-76- NON-STRESS TEST OPHELIA FRENCH DO Dec 27, 2024 13:13
[2024-12-27] MEDS: fentaNYL CITRATE 100 MCG/2 ML VL ONE (14:24)
[2024-12-27] MEDS: fentaNYL CITRATE 100 MCG/2 ML VL IV ONE (15:01)
[2024-12-27] MEDS: ceFAZolin 1GM/50ML 50 ML IV SCH (15:08)
--- NOTE | 2024-12-27 15:25 | DVHNC2 ---
Procedure - Called for breakthrough pain. Patient had epidural placed at 2230 that was initially working well. Now with breakthrough pain despite a bolus. Patient agrees to replacing epidural. Informed consent obtained at 1420. Sitting position. Epidural catheter removed, blue tip intact (BP 129/90 HR 110 spO2 98). Sterile prep and drape. Time out done. L4-5 space infiltrated with 1% lido. Epidural needle placed with ONOFRE at 6cm. 25G spinal +clear SF. 15mcg fentanyl IT at 1430 (BP 124/93 HT 108 spO2 98). Epidural catheter secured at 12cm. Aspiration and test dose (3cc 1.55 lido with epi) negative at 1432. 85mcg fentanyl given via catheter at 1433. Patient reports good pain relief. 0.2%% ropivacaine infusion re-started at 1442 (BP 118/74 HR 90 spO2 99). Will follow as needed. ZAHRA BARKSDALE MD Dec 27, 2024 15:25
[2024-12-27] MEDS: METHYLERGONOVINE MALEATE 0.2 MG/ML AMP IM ONE ×2 (17:00→17:13)
--- NOTE | 2024-12-27 17:11 | LDN2 ---
Labor and Delivery Note Date 12/27/24 Age 19 2 Para 1 AB 1 EDC 9-9 EGA 37WKS Diagnosis IOL FOR CHOLESTASIS OF PREG Vaginal Delivery: VTX Vacuum Assisted: No Placenta: Spontaneous Sex: Female Amniotic Fluid: Clear Anesthesia EPIDURAL Episiotomy: No Extension: Yes (2ND DEG VAG LAC,BILAT 1STDEG LABIAL LAC) Repaired with 2-0 CHROMIOC EBL 300ML Labs Blood Bank 12/26/24 07:18: Blood Type A POSITIVE Complications NONE Conditions STABLE Comments/Significant Med David NONE Visit Coding OBGYN Date of Service: Dec 27, 2024 Billing Provider: OPHELIA FRENCH DO PSYCHOLOGY INSTRUCTOR Common Visit Codes: [id number] OBS CARE (HIGH) PSYCHOLOGY INSTRUCTOR Procedure Codes: [id number] DELIVERY ONLY OPHELIA FRENCH DO Dec 27, 2024 17:11
[2024-12-27] MEDS: LACT. RINGERS/OXYTOCIN 20UNITS 500 ML IV ONE ×2 (17:12→17:13)
[2024-12-27] MEDS ORDERED: ACETAMINOPHEN 325 MG TAB PO PRN (18:00)
[2024-12-27] MEDS ORDERED: TRANEXAMIC ACID 1,000 mg/10ml INJ VIAL IV ONE (18:10)
[2024-12-27] MEDS: IBUPROFEN 600 MG TAB PO PRN (18:22)
[2024-12-27 23:00] VITALS: BP 119/74; PULSE 86; RESP 18; TEMP 98.3; O2SAT 95
[2024-12-28 03:15] VITALS: BP 110/61; PULSE 104; RESP 16; TEMP 97.9; O2SAT 98
--- NOTE | 2024-12-28 05:55 | DVHPN2 ---
Progress Note Date Seen: Dec 28, 2024 Subjective Starla Brito is a 19 year old PP day 1, doing well. Patient was able to get a lot of rest throughout the night and was setting alarms to remember to breastfeed her baby SUBJECTIVE -Lochia minimal -Eating regular diet and tolerating fluids -Pain well managed with PO medications, especially ibuprofen -Able to ambulate and void independently without lightheadedness or dizziness -No BM yet and has not passed gas - well -Requesting to stay overnight again and be discharged 12/29 vital signs Vital Sign Date Time Temp Pulse Resp B/P (MAP) Pulse Ox O2 Delivery O2 Flow Rate FiO2 12/28/24 03:15 97.9 104 16 110/61 (77) 98 97.9 12/27/24 19:00 Room Air Total Intake and Output 12/27/24 12/27/24 12/28/24 15:00 23:00 07:00 Output Total 1200 ml 600 ml Balance -1200 ml -600 ml medications Current Medications Medications Dose Ordered Sig/Lorri Route Start Time Stop Time Status Last Admin Dose Admin Nalbuphine HCl 10 mg Q4HP PRN IV 12/26/24 07:15 Witch Eleni 1 pad PRN PRN TOP 12/26/24 07:15 12/26/24 20:22 1 PAD Sodium Lauryl Sulfate 240 ml PRN PRN TOP 12/26/24 07:15 12/26/24 20:22 240 ML Benzocaine 1 applic PRN PRN TOP 12/26/24 07:15 12/27/24 21:08 1 APPLIC Ondansetron HCl 4 mg Q4HPRN PRN IV 12/27/24 01:15 Cefazolin Sodium 50 ml @ 100 mls/hr Q8HR IV 12/27/24 14:30 12/27/24 23:29 100 MLS/HR Ibuprofen 600 mg Q6HP PRN PO 12/27/24 18:00 12/28/24 01:22 600 MG Acetaminophen 650 mg Q4HP PRN PO 12/27/24 18:00 laboratory and microbiology Laboratory Tests 12/26/24 07:18 Test 12/26/24 07:18 Range/Units Serum Glucose 108 H 74-106 mg/dL Objective OBJECTIVE -A&O x4. No apparent distress. Affect appropriate -Afebrile, VSS -Chest: heart and lung sounds normal -Breast: Nipples intact without cracks or soreness -Abdomen: Normal BS, soft, non-tender. No rebound or guarding. Fundus firm @U-1. Lochia minimal -Perineum: Mild edema. No erythema. Incision site with sutures intact, edges in good approximation -Extremities: No edema or tenderness Problems(with codes): (1) (normal spontaneous vaginal delivery) (2) Second degree perineal laceration Assessment/Plan ASSESSMENT 19 yo ppd #1 s/p doing well. Blood Type: A+ Breast feeding and hand expressing to spoon feed baby Rubella Non-Immune Pain control with PO medications PLAN -Continue pain management with oral medications as previously ordered -Increase fluid intake and fiber in diet to promote regular bowel movements, Laxative PRN -Encouraged patient to continue taking vitamin and iron -Educated patient on self care and warning signs of PPH, PPD, and pre-eclampsia. Answered all pt questions and concerns -Continue routine care and anticipate discharge tomorrow (12/29) Plan discussed with: Patient, Other (sig other) Visit Coding OBGYN Date of Service: Dec 28, 2024 Billing Provider: JOSEY CHAN CNM SENIOR PRINCIPAL Common Visit Codes: [id number] INP/OBS CARE(MOD) JOSEY CHAN CNM Dec 28, 2024 05:55
[2024-12-28] MEDS ORDERED: MEASLES, MUMPS & RUBELLA VAC(MMRII) 0.5ML SC ONE (06:00)
[2024-12-28] MEDS ORDERED: TETANUS-DIPTH-ACEL PERTUSSIS 0.5ML SYR Tdap IM ONE (06:00)
[2024-12-28 07:00] VITALS: BP 108/60; PULSE 97; RESP 18; TEMP 97.9; O2SAT 96
[2024-12-28 11:00] VITALS: BP 111/64; PULSE 96; RESP 20; TEMP 97.9; O2SAT 98
[2024-12-28 15:00] VITALS: BP 125/72; PULSE 100; RESP 18; TEMP 98.2; O2SAT 97
[2024-12-28 19:00] VITALS: BP 118/65; PULSE 96; RESP 16; TEMP 98.5; O2SAT 96
[2024-12-28 23:00] VITALS: BP 126/80; PULSE 95; RESP 16; TEMP 98.1; O2SAT 99
[2024-12-28] MEDS ORDERED: DOCU-94 PO (23:05)
[2024-12-28] MEDS ORDERED: IBU600T PO (23:05)
[2024-12-28] MEDS: DOCUSATE SOD 100 MG CAP PO SCH (23:39)
--- NOTE | 2024-12-29 00:30 | DVHPN2 ---
Progress Note Date Seen: Dec 29, 2024 Subjective Patient sitting up in bed and smiling. States she gave baby formula, but it has helped her rest more today SUBJECTIVE -Lochia minimal -Tolerating regular diet well. -Ambulating and voiding well w/o feeling lightheaded or dizzy. -Passing flatus and had first bowel movement -Combo feeding. - Contraceptive plan: Undecided. Patient would like to discuss at her 2 week follow-up visit -Desires and requests to be discharged home today (12/29) vital signs Vital Sign Date Time Temp Pulse Resp B/P (MAP) Pulse Ox O2 Delivery O2 Flow Rate FiO2 12/28/24 23:00 98.1 95 16 126/80 (95) 99 98.1 12/28/24 19:00 Room Air 12/28/24 07:00 0.0 medications Current Medications Medications Dose Ordered Sig/Lorri Route Start Time Stop Time Status Last Admin Dose Admin Nalbuphine HCl 10 mg Q4HP PRN IV 12/26/24 07:15 Witch Eleni 1 pad PRN PRN TOP 12/26/24 07:15 12/26/24 20:22 1 PAD Sodium Lauryl Sulfate 240 ml PRN PRN TOP 12/26/24 07:15 12/26/24 20:22 240 ML Benzocaine 1 applic PRN PRN TOP 12/26/24 07:15 12/27/24 21:08 1 APPLIC Ondansetron HCl 4 mg Q4HPRN PRN IV 12/27/24 01:15 Ibuprofen 600 mg Q6HP PRN PO 12/27/24 18:00 12/28/24 23:07 600 MG Acetaminophen 650 mg Q4HP PRN PO 12/27/24 18:00 Docusate Sodium 200 mg HS PO 12/28/24 23:30 12/28/24 23:39 200 MG laboratory and microbiology Laboratory Tests 12/26/24 07:18 Test 12/26/24 07:18 Range/Units Serum Glucose 108 H 74-106 mg/dL Objective OBJECTIVE -A&O x4. No apparent distress. Affect appropriate -Afebrile, VSS -Chest: heart and lung sounds normal. -Breasts: Nipples intact w/o cracks or soreness -Abdomen: normal BS, soft, non-tender, no rebound or guarding, fundus firm @ U- 1, lochia minimal -Perineum: no edema, or erythema, Incision site with sutures intact, edges in good approximation. -Extremities: no edema or tenderness Problems(with codes): (1) (normal spontaneous vaginal delivery) (2) Second degree perineal laceration Assessment/Plan ASSESSMENT -19 yo now ppd #2 s/p doing well. -Blood Type: A+ -Combo feeding -Rubella Non-Immune PLAN -Continue pain management with oral medications as previously ordered -Continue with adequate fluid intake and fiber in diet to promote regular bowel movements -Give MMR immunization per protocol, if desired -Encouraged patient to continue taking vitamin and iron -Educated patient on self care and warning signs of PPH, PPD, and pre-eclampsia. Answered all pt questions and concerns -Continue routine care and anticipate discharge today Plan discussed with: Patient, Other (sig other) Visit Coding OBGYN Date of Service: Dec 29, 2024 Billing Provider: JOSEY CHAN CNM INSURANCE BROKER Common Visit Codes: [id number] INP/OBS CARE(HIGH) JOSEY CHAN CNM Dec 29, 2024 00:29
--- NOTE | 2024-12-29 00:33 | DVHDS2 ---
Obstetrics Discharge Summary Obstetrics Discharge Summary Date of Admission: Dec 26, 2024 Date of Discharge: Dec 29, 2024 Reason For Admission: Induction of Labor Intrapartum Procedures: Spontaneous vaginal deliv Procedures: Rubella Ig Operative Complicat: Laceration (Second degree Perineal and bilat labial) Discharge Diagnosis: Term -Delivered Discharge Information: Activity (Unrestricted. Advance as tolerated. Balance activities with rest periods. No heavy lifting, pushing or straining. Pelvic rest x 6 weeks), Diet (Routine), Medications (Ibuprofen 600mg every 6 hours as needed for pain. Colace 100mg twice a day as needed to keep bowel movements soft and prevent constipation. Continue Vitamin and iron), Discharge to (Home), Discarge date (12/29/24) Discharge Care Plan Instructions - self care instructions given - emergency signs and symptoms including but not limited to pre-eclampsia precautions and signs of infection, PPH & of PPD reviewed with patient. -Follow up with OB Provider in 2 weeks (appt scheduled for 01/11/25) and again at 6 weeks Visit Coding OBGYN Date of Service: Dec 29, 2024 Billing Provider: JOSEY CHAN CNM [employer]OR Common Visit Codes: 92389-HJF/OBS DISCH DAY >30MIN JOSEY CHAN CNM Dec 29, 2024 00:33
--- NOTE | 2024-12-29 00:38 | DVHDS2 ---
ASSESSMENT ASSESSMENT Hospital Course Admitted on 12/26/24 at 37w2d for induction of labor for cholestasis. Patient had three doses of misoprostol, pitocin, and AROM. Got labor epidural for pain relief. She progressed to 2nd stage of labor and had a with second degree perineal laceration and bilateral labial lacerations. Normal course; meeting milestones w/o any problem or complications. Assessment Term , delivered Secondary: IOL, cholestasis IUP at 37 weeks Second degree perineal laceration Problems: (1) Second degree perineal laceration (2) (normal spontaneous vaginal delivery) JOSEY CHAN CNM Dec 29, 2024 00:38
[2024-12-29 03:00] VITALS: BP 116/58; PULSE 88; RESP 17; TEMP 98.7; O2SAT 95
[2024-12-29 07:00] VITALS: BP 129/77; PULSE 101; RESP 18; TEMP 98.1; O2SAT 97
[2024-12-29 11:00] VITALS: BP 121/75; PULSE 84; RESP 16; TEMP 98.4; O2SAT 98
== END 2024-12-29 13:08 | disposition home or self-care (01) | DRG 560 ==
LOC: LDRP 07:05
PROVIDERS: ADMIT Obstetrics & Gynecology; ATTEND Obstetrics & Gynecology
PROC: 10E0XZZ Delivery of Products of Conception, External Approach (ICD-10-PCS; principal; 2024-12-27)
PROC: 3E0DXGC Introduction of Other Therapeutic Substance into Mouth and Pharynx, External Approach (ICD-10-PCS; 2024-12-27)
PROC: 0KQM0ZZ Repair Perineum Muscle, Open Approach (ICD-10-PCS; 2024-12-27)
PROC: 0UQMXZZ Repair Vulva, External Approach (ICD-10-PCS; 2024-12-27)
PROC: 3E0R3BZ Introduction of Anesthetic Agent into Spinal Canal, Percutaneous Approach (ICD-10-PCS; 2024-12-27)
PROC: 00HU33Z Insertion of Infusion Device into Spinal Canal, Percutaneous Approach (ICD-10-PCS; 2024-12-27)
DX: O26.643 Intrahepatic cholestasis of pregnancy, third trimester (principal); Z37.0 Single live birth; O70.1 Second degree perineal laceration during delivery; Z3A.37 37 weeks gestation of pregnancy; O76 Abnormality in fetal heart rate and rhythm complicating labor and delivery
CPT/HCPCS: 36415; 59200; 59409; 62282; 80053; 80307; 81001; 81002; 85025; 85610; 85730; 86780; 86803; 86850; 86900; 86901; 94760; 94762; 96360; 96361; 96365; 96366; 96372; A4344; G0378; J2590

== ENCOUNTER 2025-01-15 19:58 | Emergency (ER) | payer MEDICAID ==
[~2025-01-15] VITALS: Ht 167.6 cm; Wt 70.2 kg
[~2025-01-15 19:58] MED LIST changes: +DOCU-94 PO; +IBU600T PO
--- NOTE | 2025-01-15 21:05 | ED.PDOC ---
GI ASSESSMENT HPI Comments This is a 19 year-old female who presents to the ED with a chief complaint of RLQ abdominal pain with associated N/D as of 1000 this morning. Patient reports recent childbirth X3 weeks ago, . Patient reports X2 episodes of diarrhea, dark brown/reddish stool. Patient has no further complaints or modifying factors at this time. Patient otherwise denies dysuria, hematuria, emesis, chest pain, back pain, fever, or chills. Past Medical History: Anemia Past Surgical History: Hernia Repair L Ankle Social History: Denies ETOH, smoking, and drug use. Medications: Iron Supplements Allergies: None HPI: Poor Historian. REVIEW OF SYSTEMS: CONSTITUTIONAL: Denies acute: fever, diaphoresis, chills, generalized weakness. HEAD: Denies acute: headache, photophobia Eyes: Denies acute: Double vision, vision loss, eye pain, eye discharge. EARS: Denies acute: tinnitus, hearing loss, ear discharge, ear pain, THROAT: Denies acute: sore throat, swelling, difficulty swallowing , pain with swallowing, change in voice. NECK: Denies acute: neck pain, neck swelling, stiff neck. HEART: Denies acute : chest pain, palpitations, LUNGS: Denies acute: SOB, wheezing, cough, hemoptysis ABDOMEN: Denies acute: Vomiting, , melena , hematemesis, hematochezia SKIN: Denies acute: rash, redness, lesions, itchiness. EXTREMITIES: Denies acute: calf pain, numbness, tingling, weakness, denies pain in extremity. Denies acute: Low back pain. Neuro: Denies acute: focal neurological deficit, motor or sensory focal neurological deficit, tremors, seizure like activity, confusion, dizziness, change in mental status, loss of bowel or bladder function, cauda equina like symptoms. : Denies acute: dysuria, hematuria, flank pain, increase in urinary frequency. PSYCH: Denies acute: hallucination, suicidal ideation, homicidal ideation. FEMALE: Denies acute: abnormal vaginal bleeding, foul odor, unusual discharge. PHYSICAL EXAM: General: ----no----acute distress, awake and alert. Head: normocephalic, atraumatic. Neck: supple, trachea is midline, no swelling. Throat: Normal phonation. Eyes:, no erythema, no purulent discharge, no proptosis, no icterus. Heart: regular rate, regular rhythm, no significant murmur appreciated. Lungs: no apparent respiratory distress, Able to speak in full sentences. No wheezing, no rhonchi, no crackles. No stridors Clear to auscultation bilaterally. Abdomen: Right lower quadrant tender to palpation, non distended, soft, no guarding, no rebound, + bowel sounds. Neuro: Awake, Alert, oriented to name, self, situation, follows commands GCS=15. Speech is normal. Skin: no petechia, no purpura, no cyanosis, slightly-pale, not jaundice. Lower extremities: --no - Pitting edema no deformity, no focal swelling, no calf TTP. Makes eye contact. moves all four extremities. Face: no apparent facial droop. Ambulating in the ED independently. ED COURSE: DISCLAIMER: This medical document was created using an electronic medical record system with voice recognition software and computerized dictation system. Although this document has been carefully reviewed, there might still be some phonetic and typographical errors. Occasional wrong-word or "sound-alike" substitutions may have occurred due to the inherent limitations of voice recognition software. These areas are purely typographical due to imperfections of the software programs and do not reflect any compromise in the patient's medical care. Please read the chart carefully and recognize, using context, where these substitutions have occurred. Chief Complaint: Abdominal Pain Time Seen by MD: 21:04 Reviewed Notes: Nurses Notes, Medications, Allergies Allergies: Coded Allergies: NO KNOWN ALLERGIES (Unverified , 11/05/24) Home Meds Active Scripts Nitrofurantoin Monohydrate Mac (Macrobid) 100 Mg Cap, 100 MG PO BID for 7 Days, #14 CAP Prov:VIANEY MALIK DO 01/16/25 Docusate Sodium (Colace) 100 Mg Cap, 1 CAP PO BID, #60 CAP 2 Refills Prov:JOSEY CHAN [facility] 12/28/24 Ibuprofen Micronized (MOTRIN TABLET) 600 Mg Tb, 600 MG PO Q6HP PRN for 20 Days, #80 TAB Prov:JOSEY CHAN CNM 12/28/24 Cephalexin Monohydrate (Cephalexin) 500 Mg Tab, 1 TAB PO TID for 5 Days, #15 TAB Prov:VIANEY MALIK DO 08/22/24 Reported Medications Ursodiol (Ursodiol) 300 Mg Cap, 300 MG PO BID for 30 Days, #60 MG 1 Refill 12/05/24 Nitrofurantoin Monohydrate Mac (Macrobid) 100 Mg Cap, 100 MG PO BID for 7 Days, CAP 10/24/24 Ferrous Sulfate (Ferrous Sulfate) 325 Mg Tab, 325 MG PO ONCE PRN for daily for 30 Days, MG 10/07/24 Vit W/ Ferrous Fumara ( One Daily) Daily Tab, 1 TAB PO DAILY, #90 TAB 3 Refills 09/21/24 Information Source: Patient Mode of Arrival: Ambulatory Timing: Hours Duration: Since onset Prehospital treatment: None Severity: Moderate Pain Location: RLQ Associated sign and symptoms: Nausea, Diarrhea, Abdominal Pain Physical Exam General Appearance: Other (a) HEENT: Other (a) Neck: Other (a) Respiratory: Other (a) Cardiovascular: Other (a) Breast Exam: Other (a) Gastrointestinal: Other Genitalia: Other (a) Pelvic: Other (a) Rectal: Other (a) Extremities: Other (a) Neurologic: Other (a) Cerebellar Function: Other (a) Reflexes: Other (a) Skin: Other (a) Lymphatic: Other (a) Was a procedure done? Was a procedure done?: No GI differential Dx Differential Diagnosis: Appendicitis, Constipation, Gastroenteritis, De hydration, Food Poisoning, , Bacterial, Parasitic, Viral, Other (DDX include Diverticulitis, colitis, gastroenteritis, acute abdomen, SBO, enteritis, constipation, volvulus, appendicitis, Gallbladder disease, choledocolithiasis, ascending cholangitis, pancreatitis, intraAbdominal mass/neoplasm, hepatitis, UTI, pylonephritis, kidney stone, aneurysm, dissection, Inflammatory bowel disease, gastroparesis, ischemic bowel, ovarian torsion, ovarian cyst/mass, tubo-ovarian abscess, , ectopic , PID, STD.) X-Ray, Labs, Meds, VS Vital Signs Date Time Temp Pulse Resp B/P (MAP) Pulse Ox O2 Delivery O2 Flow Rate FiO2 01/16/25 01:34 86 17 97 Room Air 01/16/25 01:34 97.8 86 17 127/89 (102) 97 97.8 01/15/25 19:59 98.2 87 18 161/103 100 98.2 Lab Test 01/15/25 21:57 01/15/25 21:08 Range/Units Urine Color Light-yellow Yellow Urine Clarity Clear Clear Urine pH 7.0 5.0-9.0 Urine Specific [place] 1.017 1.001-1.035 Urine Protein 2+ H Negative Urine Ketones Negative Negative Urine Blood Negative Negative /uL Urine Nitrite Negative Negative Urine Bilirubin Negative Negative Urine Urobilinogen Normal Negative mg/dL Urine Leukocyte Esterase 2+ Negative /uL Urine RBC 2 0 - 4 /hpf Urine Microscopic WBC 31 H 0-5 /HPF Urine Squamous Epithelial Cells Few <5 /hpf Urine Bacteria None seen None Seen /hpf Urine Mucus Few None Seen Urine Glucose Normal Normal mg/dL White Blood Count 8.0 4.4-10.8 10^3/uL Red Blood Count 4.51 4.0-5.20 10^6/uL Hemoglobin 10.2 L 12.2-16.2 g/dL Hematocrit 33.0 L 36.0-46.0 % Mean Corpuscular Volume 73.2 L 80.0-100.0 fL Mean Corpuscular Hemoglobin 22.7 L 28.0-32.0 pg Mean Corpuscular Hemoglobin Concent 30.9 L 32.0-36.0 g/dL Red Cell Distribution Width 21.6 H 11.8-14.3 % Platelet Count 283 140-450 10^3/uL Mean Platelet Volume 10.3 6.9-10.8 fL Neutrophils (%) (Auto) 58.2 37.0-80.0 % Lymphocytes (%) (Auto) 29.0 10.0-50.0 % Monocytes (%) (Auto) 7.7 0.0-12.0 % Eosinophils (%) (Auto) 4.3 0.0-7.0 % Basophils (%) (Auto) 0.8 0.0-2.0 % Neutrophils # (Auto) 4.6 1.6-8.6 10 ^3/uL Lymphocytes # (Auto) 2.3 0.4-5.4 10 ^3/uL Monocytes # (Auto) 0.6 0-1.3 10 ^3/uL Eosinophils # (Auto) 0.3 0-0.8 10 ^3/uL Basophils # (Auto) 0.1 0-0.2 10 ^3/uL Nucleated Red Blood Cells 0.1 % Sodium Level 143 136-145 mmol/L Potassium Level 3.9 3.5-5.1 mmol/L Chloride Level 109 H 98-107 mmol/L Carbon Dioxide Level 25 20-31 mmol/L Anion Gap 9 5-15 Blood Urea Nitrogen 8 L 9-23 mg/dL Creatinine 0.59 0.550-1.02 mg/dL Glomerular Filtration Rate Calc 132 >90 mL/min BUN/Creatinine Ratio 13.6 10.0-20.0 Serum Glucose 95 74-106 mg/dL Lactic Acid Level 1.2 0.4-2.0 mmol/L Calcium Level 9.5 8.7-10.4 mg/dL Total Bilirubin 0.7 0.2-1.0 mg/dL Aspartate Amino Transferase (AST) 15 13-40 U/L Alanine Aminotransferase (ALT) 13 7-40 U/L Alkaline Phosphatase 128 H 46-116 U/L Total Protein 6.8 5.7-8.2 g/dL Albumin 4.8 3.2-4.8 g/dL Lipase 40 12-53 U/L [place] [address] Ph: [phone] DIAGNOSTIC IMAGING Diagnostic Imaging Report : [id number] Signed PATIENT: GARCIA ASTORGA ACCT: [id number] UNIT: [id number] : 2005 LOC: ER ROOM / BED: / AGE / SEX: 19 / F ADM STATUS: REG ER SERVICE 00 ORDERING PHYSICIAN: VIANEY MALIK DO PROCEDURE(s): ABPL - CT AB PEL WO CON-NO ORAL OR IV REASON: ABD PAIN N/D ORDER NUMBER(s): [id number], ACCESSION NUMBER(s): [id number] EXAM: CT CT AB PEL WO CON-NO ORAL OR IV INDICATION: ABD PAIN N/D TECHNIQUE: Volumetric multidetector CT images of the abdomen and pelvis were obtained without contrast. All CT scans at this facility use dose modulation, iterative reconstruction, and/or weight based dosing when appropriate to reduce radiation dose to as low as reasonably achievable. COMPARISON: None FINDINGS: [LOWER CHEST]: The partially visualized lung bases are clear without a pleural effusion. The cardiac size is normal without pericardial effusion. [LIVER]: Normal hepatic size without suspicious focal lesion. [GALLBLADDER AND BILIARY TREE]: No cholelithiasis. [SPLEEN]: Unremarkable. [PANCREAS]: Unremarkable. [ADRENAL GLANDS]: Unremarkable [KIDNEYS]: No hydronephrosis. No nephroureterolithiasis. No suspicious focal lesion. inconspicuous possible cortical medullary junction calcification which may represent trace medullary nephrocalcinosis. [BLADDER]: Unremarkable for the degree distention. [REPRODUCTIVE ORGANS]: Question slight edema along the course of the superior aspect of the ovarian vein with edema tracking along the retroperitoneum towards the right adnexa. Correlate for right ovarian thrombophlebitis. [BOWEL/MESENTERY]: Stomach is normal. Uagl-fv-iwmhmved stool burden normal appendix. [ASCITES]: Absent [LYMPHADENOPATHY]: No pathologically enlarged lymph nodes by CT size criteria. Multiple likely reactive ileocolic lymph nodes [VASCULATURE]: No aneurysmal dilatation. [ABDOMINAL WALL]: Unremarkable. [MUSCULOSKELETAL]: No acute fracture or aggressive focal osseous lesion. Multifocal degenerative change of the visualized spine. IMPRESSION: 1. Question slight edema along the course of the superior aspect of the ovarian vein with edema tracking along the retroperitoneum towards the right adnexa. Alternatively, retroperitoneal edema may reflect sequelae of recently passed stone. 2. Correlate for right ovarian thrombophlebitis. 3. Normal appendix. 4. Inconspicuous possible cortical medullary junction calcification which may represent trace medullary nephrocalcinosis. ATED BY: LORENZO CHUA MD DICTATED DATE/TIME: 01/15/252148 SIGNED BY: LORENZO CHUA MD SIGNED DATE/TIME: 01/15/252148 CC: [place] [address] Ph: [phone] DIAGNOSTIC IMAGING Diagnostic Imaging Report : [id number] Signed PATIENT: GARCIA ASTORGA ACCT: [id number] UNIT: [id number] : 2005 LOC: ER ROOM / BED: / AGE / SEX: 19 / F ADM STATUS: REG ER SERVICE 00 ORDERING PHYSICIAN: VIANEY MALIK DO PROCEDURE(s): PELUS - PELVIC REASON: ABD PAIN N/D ORDER NUMBER(s): [id number], ACCESSION NUMBER(s): [id number] EXAM: US PELVIC HISTORY: ABD PAIN N/D COMPARISON: US OB TRANS VAGINAL US on DOS: 11/21/24 TECHNIQUE: Transabdominal and transvaginal imaging was utilized. Grayscale and color doppler evaluation. Images were stored in the patient's permanent medical record. FINDINGS: UTERUS: 12.2 x 7.1 x 6.9 cm. Endometrial stripe: 0.5 cm. Small amount of fluid within the endometrial canal RIGHT OVARY: 2.3 x 1.8 x 1.6 cm.Normal vascularity. No suspicious masses or cysts. LEFT OVARY: 3.1 x 1.3 x 1.7 cm. Normal vascularity. No suspicious masses or cysts. OTHER: No free fluid is identified. IMPRESSION: 1. Unremarkable pelvic ultrasound. ATED BY: LORENZO CHUA MD DICTATED DATE/TIME: 01/15/252206 SIGNED BY: LORENZO CHUA MD SIGNED DATE/TIME: 01/15/252206 CC: Images Reviewed?: Images reviewed and evaluated by me Time of 1ST Reevaluation: 21:50 Reevaluation 1ST: Unchanged Time of 2ND Reevaluation: 01:16 (The case was discussed with the OB [facility] on- call team (HPI, physical exam, labs and diagnostic tests that were available at the time of disposition, ED course, treatment plan) on the phone. She recommends discharging the patient home. No further intervention needed. Patient is afebrile. No leukocytosis. Pelvic ultrasound is essentially unremarkable. --- juan. ) Patient Education/Counseling: Diagnosis, Treatment Family Education/Counseling: No Family Present Medical Screening: No EMC Exist At This Time Comments MDM: patient presented with the above HPI.--GI symptoms----workup was initiated. patient was found with the above mentioned diagnosis. the following medications were ordered: please refer to order lists of meds and tests obtained by myself Dr. Malik. Patient ED course and VS have been stabilized. Patient has been reassessed in the ED and remained in a stable condition. Pertinent incidental findings were discussed with the patient and/or family. Patient/family voices understanding and is agreeable with plan. Patient has been observed in the ED adequate length of time to insure improvement/stability. Escalation of care considered: Consideration of escalation to observation or admission Patient was given Toradol and Rocephin. CT scan and pelvic ultrasound were obtained which were unremarkable. Patient was DISCHARGED home in a stable condition. All the reports of any imaging studies that were ordered by myself were reviewed by myself. SEPSIS Sepsis Screen Date sepsis recognized/suspect: Jan 15, 2025 Time Sepsis recognized/suspect: 1958 Recent Procedure: No On Antibiotic Therapy: No Respiratory Rate >20: No Heart Rate >90: No Temp<36 C (96.8 F) or >38.3 C: No SBP <90 or MAP <65 mmHG: No New Acute Mental Status Change: No Is the patient on CPAP, BIPAP,: No Physician Orders [place]eping Officer (01/15/25 ) Electrocardigram (01/15/25 21:01) Ct Ab Pel Wo Con-No Oral Or Iv (01/15/25 21:01) Pelvic (01/15/25 21:01) Vital Signs Date Time Temp Pulse Resp B/P (MAP) Pulse Ox O2 Delivery O2 Flow Rate FiO2 01/16/25 01:34 86 17 97 Room Air 01/16/25 01:34 97.8 86 17 127/89 (102) 97 97.8 01/15/25 19:59 98.2 87 18 161/103 100 98.2 Laboratory Tests Test 01/15/25 21:08 Lactic Acid Level 1.2 mmol/L (0.4-2.0) White Blood Count 8.0 10^3/uL (4.4-10.8) Departure 1 Departure Time of Disposition: 00:49 Impression: Primary Impression: Urinary tract infection Additional Impressions: Anemia Right lower quadrant pain Disposition: 01 HOME / SELF CARE / HOMELESS Condition: Stable Additional Instructions: Additional instructions: Please read all instructions provided in this packet carefully. You MUST follow-up with your primary care/family doctor in 1 to 2 days. If you are unable to see your primary care/family doctor, please return to our emergency room for re-assessment and re-evaluation in 1 to 2 days. Return to the emergency room here in our facility or to the nearest ER [facility] if your symptoms change or worsen. CONSULTATIONS: you MUST Follow-up for consultation as soon as possible with: Dr.-OB Grijalva doctor and gastroenterology and urology in 1-2 days. Please call for appointment. You MUST call the consultants office yourself to make an appointment. You may need to arrange that through your insurance and/or your primary/family doctor. If you are unable to see the workforce management consultant in 1 to 2 days, you must return to our emergency room (or any other ER of your choice) for re-assessment and re- evaluation. Adequate fluid hydration. Although you have been discharged from the Emergency Department, this does not mean that you have a "clean bill of health". No definitive diagnosis for your symptoms has been made today. It is possible that you are in the process of developing a serious illness. This is why you must return to the ED without fail if any new or worsening symptoms develop. Pelvic rest. Below is a copy of your radiological report for follow up: [place] [address] Ph: [phone] DIAGNOSTIC IMAGING Diagnostic Imaging Report : [id number] Signed PATIENT: GARCIA ASTORGA ACCT: [id number] UNIT: [id number] : 2005 LOC: ER ROOM / BED: / AGE / SEX: 19 / F ADM STATUS: REG ER SERVICE 00 ORDERING PHYSICIAN: VIANEY MALIK DO PROCEDURE(s): ABPL - CT AB PEL WO CON-NO ORAL OR IV REASON: ABD PAIN N/D ORDER NUMBER(s): [id number], ACCESSION NUMBER(s): [id number] EXAM: CT CT AB PEL WO CON-NO ORAL OR IV INDICATION: ABD PAIN N/D TECHNIQUE: Volumetric multidetector CT images of the abdomen and pelvis were obtained without contrast. All CT scans at this facility use dose modulation, iterative reconstruction, and/or weight based dosing when appropriate to reduce radiation dose to as low as reasonably achievable. COMPARISON: None FINDINGS: [LOWER CHEST]: The partially visualized lung bases are clear without a pleural effusion. The cardiac size is normal without pericardial effusion. [LIVER]: Normal hepatic size without suspicious focal lesion. [GALLBLADDER AND BILIARY TREE]: No cholelithiasis. [SPLEEN]: Unremarkable. [PANCREAS]: Unremarkable. [ADRENAL GLANDS]: Unremarkable [KIDNEYS]: No hydronephrosis. No nephroureterolithiasis. No suspicious focal lesion. inconspicuous possible cortical medullary junction calcification which may represent trace medullary nephrocalcinosis. [BLADDER]: Unremarkable for the degree distention. [REPRODUCTIVE ORGANS]: Question slight edema along the course of the superior aspect of the ovarian vein with edema tracking along the retroperitoneum towards the right adnexa. Correlate for right ovarian thrombophlebitis. [BOWEL/MESENTERY]: Stomach is normal. Tzfz-ck-btkqocsv stool burden normal appendix. [ASCITES]: Absent [LYMPHADENOPATHY]: No pathologically enlarged lymph nodes by CT size criteria. Multiple likely reactive ileocolic lymph nodes [VASCULATURE]: No aneurysmal dilatation. [ABDOMINAL WALL]: Unremarkable. [MUSCULOSKELETAL]: No acute fracture or aggressive focal osseous lesion. Multifocal degenerative change of the visualized spine. IMPRESSION: 1. Question slight edema along the course of the superior aspect of the ovarian vein with edema tracking along the retroperitoneum towards the right adnexa. Alternatively, retroperitoneal edema may reflect sequelae of recently passed stone. 2. Correlate for right ovarian thrombophlebitis. 3. Normal appendix. 4. Inconspicuous possible cortical medullary junction calcification which may represent trace medullary nephrocalcinosis. ATED BY: LORENZO CHUA MD DICTATED DATE/TIME: 01/15/252148 SIGNED BY: LORENZO CHUA MD SIGNED DATE/TIME: 01/15/252148 CC: [place] [address] Ph: [phone] DIAGNOSTIC IMAGING Diagnostic Imaging Report : [id number] Signed PATIENT: GARCIA ASTORGA ACCT: [id number] UNIT: [id number] : 2005 LOC: ER ROOM / BED: / AGE / SEX: 19 / F ADM STATUS: REG ER SERVICE 00 ORDERING PHYSICIAN: VIANEY MALIK DO PROCEDURE(s): PELUS - PELVIC REASON: ABD PAIN N/D ORDER NUMBER(s): [id number], ACCESSION NUMBER(s): [id number] EXAM: US PELVIC HISTORY: ABD PAIN N/D COMPARISON: US OB TRANS VAGINAL US on DOS: 11/21/24 TECHNIQUE: Transabdominal and transvaginal imaging was utilized. Grayscale and color doppler evaluation. Images were stored in the patient's permanent medical record. FINDINGS: UTERUS: 12.2 x 7.1 x 6.9 cm. Endometrial stripe: 0.5 cm. Small amount of fluid within the endometrial canal RIGHT OVARY: 2.3 x 1.8 x 1.6 cm.Normal vascularity. No suspicious masses or cysts. LEFT OVARY: 3.1 x 1.3 x 1.7 cm. Normal vascularity. No suspicious masses or cysts. OTHER: No free fluid is identified. IMPRESSION: 1. Unremarkable pelvic ultrasound. ATED BY: LORENZO CHUA MD DICTATED DATE/TIME: 01/15/252206 SIGNED BY: LORENZO CHUA MD SIGNED DATE/TIME: 01/15/252206 CC: e-Prescriptions Nitrofurantoin Monohydrate Mac (Macrobid) 100 Mg Cap 100 MG PO BID for 7 Days, #14 CAP Prov: VIANEY MALIK DO 01/16/25 Discharged With: Self Critical Care Note Critical Care Time?: No I personally scribed for VIANEY MALIK DO ([email or web address]) on 01/15/25 at 21:05. Electronically submitted by Juani Hunter ([facility]). I personally scribed for VIANEY MALIK DO ([email or web address]) on 01/15/25 at 21:42. Electronically submitted by Juani Hunter ([facility]). I personally scribed for VIANEY MALIK DO ([email or web address]) on 01/15/25 at 21:44. Electronically submitted by Juani Hunter ([facility]). I personally scribed for VIANEY MALIK DO ([email or web address]) on 01/15/25 at 22:10. Electronically submitted by Juani Hunter ([facility]). I personally scribed for VIANEY MALIK DO ([email or web address]) on 01/15/25 at 22:12. Electronically submitted by Juani Hunter ([facility]). VIANEY MALIK DO Jan 15, 2025 21:05
[2025-01-15 21:20] LABS: Hematocrit 33.0 % (36.0-46.0); Hemoglobin 10.2 g/dL (12.2-16.2); Mean Corpuscular Hemoglobin 22.7 pg (28.0-32.0); Mean Corpuscular Volume 73.2 fL (80.0-100.0); Nucleated Red Blood Cells % 0.1 %
[2025-01-15 21:39] LABS: Alanine Aminotransferase 13 U/L (7-40); Albumin 4.8 g/dL (3.2-4.8); Anion Gap 9 (5-15); BUN/Creatinine Ratio 13.6 (10.0-20.0); Bilirubin, Total 0.7 mg/dL (0.2-1.0); Calcium 9.5 mg/dL (8.7-10.4); Carbon Dioxide 25 mmol/L (20-31); Glucose 95 mg/dL (74-106); Lipase 40 U/L (12-53); Potassium 3.9 mmol/L (3.5-5.1); Sodium 143 mmol/L (136-145); Total Protein 6.8 g/dL (5.7-8.2)
[2025-01-15 21:42] LABS: Blood Urea Nitrogen 8 mg/dL (9-23); Chloride 109 mmol/L (98-107)
[2025-01-15 21:43] LABS: Alkaline Phosphatase 128 U/L (46-116)
--- NOTE | 2025-01-15 21:51 | DVH ---
EXAM: CT CT AB PEL WO CON-NO ORAL OR IV INDICATION: ABD PAIN N/D TECHNIQUE: Volumetric multidetector CT images of the abdomen and pelvis were obtained without contras t. All CT scans at this facility use dose modulation, iterative reconstruction, and/or weight based d osing when appropriate to reduce radiation dose to as low as reasonably achievable. COMPARISON: None FINDINGS: [LOWER CHEST]: The partially visualized lung bases are clear without a pleural effusion. The cardiac size is normal without pericardial effusion. [LIVER]: Normal hepatic size without suspicious focal lesion. [GALLBLADDER AND BILIARY TREE]: No cholelithiasis. [SPLEEN]: Unremarkable. [PANCREAS]: Unremarkable. [ADRENAL GLANDS]: Unremarkable [KIDNEYS]: No hydronephrosis. No nephroureterolithiasis. No suspicious focal lesion. inconspicuous po ssible cortical medullary junction calcification which may represent trace medullary nephrocalcinosis . [BLADDER]: Unremarkable for the degree distention. [REPRODUCTIVE ORGANS]: Question slight edema along the course of the superior aspect of the ovarian v ein with edema tracking along the retroperitoneum towards the right adnexa. Correlate for right ovari an thrombophlebitis. [BOWEL/MESENTERY]: Stomach is normal. [id number] stool burden normal appendix. [ASCITES]: Absent [LYMPHADENOPATHY]: No pathologically enlarged lymph nodes by CT size criteria. Multiple likely reacti ve ileocolic lymph nodes [VASCULATURE]: No aneurysmal dilatation. [ABDOMINAL WALL]: Unremarkable. [MUSCULOSKELETAL]: No acute fracture or aggressive focal osseous lesion. Multifocal degenerative nair ge of the visualized spine. IMPRESSION: 1. Question slight edema along the course of the superior aspect of the ovarian vein with edema track ing along the retroperitoneum towards the right adnexa. Alternatively, retroperitoneal edema may refl ect sequelae of recently passed stone. 2. Correlate for right ovarian thrombophlebitis. 3. Normal appendix. 4. Inconspicuous possible cortical medullary junction calcification which may represent trace medulla ry nephrocalcinosis.
--- NOTE | 2025-01-15 22:09 | DVH ---
EXAM: US PELVIC HISTORY: ABD PAIN N/D COMPARISON: US OB TRANS VAGINAL US on DOS: 11/21/24 TECHNIQUE: Transabdominal and transvaginal imaging was utilized. Grayscale and color doppler evaluati on. Images were stored in the patient's permanent medical record. FINDINGS: UTERUS: 12.2 x 7.1 x 6.9 cm. Endometrial stripe: 0.5 cm. Small amount of fluid within the endometrial canal RIGHT OVARY: 2.3 x 1.8 x 1.6 cm.Normal vascularity. No suspicious masses or cysts. LEFT OVARY: 3.1 x 1.3 x 1.7 cm. Normal vascularity. No suspicious masses or cysts. OTHER: No free fluid is identified. IMPRESSION: 1. Unremarkable pelvic ultrasound.
[2025-01-15 22:19] LABS: Urine Protein, UAD 2+ (Negative)
[2025-01-16] MEDS ORDERED: NITR-87 PO (01:18)
[2025-01-16 01:34] VITALS: BP 127/89; PULSE 86; RESP 17; TEMP 97.8; O2SAT 97
[2025-01-16] MEDS: KETOROLAC TROMETH 30 MG/ML 1ML VIAL IV ONE (01:39)
== END 2025-01-16 01:48 | disposition home or self-care (01) ==
LOC: ER 20:00
DX: N39.0 Urinary tract infection, site not specified (principal); D64.9 Anemia, unspecified; R10.31 Right lower quadrant pain; Z98.890 Other specified postprocedural states
CPT/HCPCS: 36415; 74176; 76856; 80053; 81001; 83605; 83690; 85025; 96374; 96375; 99285; J0696; J1885; 96365

== ENCOUNTER 2025-03-13 00:37 | Emergency (ER) | payer MEDICAID ==
[~2025-03-13] VITALS: Ht 167.6 cm; Wt 64.5 kg
[2025-03-13 00:43] VITALS: BP 126/93; RESP 19; TEMP 97.6; O2SAT 94
--- NOTE | 2025-03-13 01:19 | ED.PDOC ---
HPI Comments 20-year-old female complains of some palpitations over the last 12 hours. Intermittent. Unprovoked. No known modifying factors. Chief Complaint: Palpitations Time Seen by MD: 00:42 Allergies: Coded Allergies: NO KNOWN ALLERGIES (Unverified , 11/05/24) Home Meds Active Scripts Potassium Chloride (Potassium Chloride ER) 10 Meq Tab, 10 MEQ PO DAILY for 10 Days, #10 TAB Prov:KAE GILLIAM MD 03/13/25 Nitrofurantoin Monohydrate Mac (Macrobid) 100 Mg Cap, 100 MG PO BID for 7 Days, #14 CAP Prov:VIANEY MALIK DO 01/16/25 Docusate Sodium (Colace) 100 Mg Cap, 1 CAP PO BID, #60 CAP 2 Refills Prov:JOSEY CHAN 12/28/24 Ibuprofen Micronized (MOTRIN TABLET) 600 Mg Tb, 600 MG PO Q6HP PRN for 20 Days, #80 TAB Prov:JOSEY CHAN 12/28/24 Cephalexin Monohydrate (Cephalexin) 500 Mg Tab, 1 TAB PO TID for 5 Days, #15 TAB Prov:VIANEY MALIK DO 08/22/24 Reported Medications Ursodiol (Ursodiol) 300 Mg Cap, 300 MG PO BID for 30 Days, #60 MG 1 Refill 12/05/24 Nitrofurantoin Monohydrate Mac (Macrobid) 100 Mg Cap, 100 MG PO BID for 7 Days, CAP 10/24/24 Ferrous Sulfate (Ferrous Sulfate) 325 Mg Tab, 325 MG PO ONCE PRN for daily for 30 Days, MG 10/07/24 Vit W/ Ferrous Fumara ( One Daily) Daily Tab, 1 TAB PO DAILY, #90 TAB 3 Refills 09/21/24 Information Source: Patient Mode of Arrival: Ambulatory Severity: Moderate Timing: Hours Duration: Intermittent Past Medical History PAST MEDICAL HISTORY: Denies Surgical History: Denies all surgeries ARMATURE INSPECTOR History: No Pertinent ARMATURE INSPECTOR History Family History Family History: Reviewed,noncontributory to illness Social History Smoker: Non-Smoker Alcohol: Denies ETOH Use Drugs: Denies Drug Use Constitutional: reports: fatigue Cardiovascular: reports: palpitations All Other Systems: Reviewed and Negative Physical Exam General Appearance: Moderate Distress HEENT: Normal ENT Inspection, Pharynx Normal, TMs Normal Neck: Full Range of Motion, Non-Tender, Normal, Normal Inspection Respiratory: Chest Non-Tender, Lungs Clear, No Accessory Muscle Use, No Respiratory Distress, Normal Breath Sounds Cardiovascular: No Edema, No JVD, No Murmur, No Gallop, Normal Peripheral Pulses, Regular Rate/Rhythm Breast Exam: Deferred Gastrointestinal: No Organomegaly, Non Tender, No Pulsatile Mass, Normal Bowel Sounds, Soft Genitalia: Deferred Pelvic: Deferred Rectal: Deferred Extremities: No calf tenderness, Normal capillary refill, Normal inspection, Normal range of motion, Non-tender, No pedal edema Musculoskeletal : Apperance: Normal Neurologic: Alert, automatic fancy machine operator II-XII nml as Tested, No Motor Deficits, Normal Affect, Normal Mood, No Sensory Deficits Cerebellar Function: Normal Reflexes: Normal Skin: Dry, Normal Color, Warm Lymphatic: No Adenopathy Was a procedure done? Was a procedure done?: No CP Differential Dx Differential Diagnosis: A-fib, A-Flutter, Angina, AV Block 1st Degree, AV Block 2nd Degree, AV Block 3rd Degree, MAT, ND, PAC's, Ventricular Dysrhythmia, V-Fib, V-Tach, Other X-Ray, Labs, Meds, VS Vital Signs Date Time Temp Pulse Resp B/P (MAP) Pulse Ox O2 Delivery O2 Flow Rate FiO2 03/13/25 01:55 67 03/13/25 01:01 86 03/13/25 00:43 97.6 89 19 126/93 94 97.6 Lab Test 03/13/25 01:58 03/13/25 01:06 Range/Units Troponin I High Sensitivity < 3 L < 3 L </=34 ng/L White Blood Count 11.4 H 4.4-10.8 10^3/uL Red Blood Count 4.49 4.0-5.20 10^6/uL Hemoglobin 10.2 L 12.2-16.2 g/dL Hematocrit 32.6 L 36.0-46.0 % Mean Corpuscular Volume 72.6 L 80.0-100.0 fL Mean Corpuscular Hemoglobin 22.7 L 28.0-32.0 pg Mean Corpuscular Hemoglobin Concent 31.3 L 32.0-36.0 g/dL Red Cell Distribution Width 19.7 H 11.8-14.3 % Platelet Count 318 140-450 10^3/uL Mean Platelet Volume 10.5 6.9-10.8 fL Neutrophils (%) (Auto) 63.8 37.0-80.0 % Lymphocytes (%) (Auto) 16.4 10.0-50.0 % Monocytes (%) (Auto) 6.6 0.0-12.0 % Eosinophils (%) (Auto) 12.0 H 0.0-7.0 % Basophils (%) (Auto) 1.2 0.0-2.0 % Neutrophils # (Auto) 7.3 1.6-8.6 10 ^3/uL Lymphocytes # (Auto) 1.9 0.4-5.4 10 ^3/uL Monocytes # (Auto) 0.8 0-1.3 10 ^3/uL Eosinophils # (Auto) 1.4 H 0-0.8 10 ^3/uL Basophils # (Auto) 0.1 0-0.2 10 ^3/uL Nucleated Red Blood Cells 0.0 % Sodium Level 141 136-145 mmol/L Potassium Level 3.2 L 3.5-5.1 mmol/L Chloride Level 104 98-107 mmol/L Carbon Dioxide Level 26 20-31 mmol/L Anion Gap 11 5-15 Blood Urea Nitrogen < 5 L 9-23 mg/dL Creatinine 0.72 0.550-1.02 mg/dL Glomerular Filtration Rate Calc 122 >90 mL/min BUN/Creatinine Ratio 6.9 L 10.0-20.0 Serum Glucose 111 H 74-106 mg/dL Calcium Level 9.6 8.7-10.4 mg/dL Total Bilirubin 0.7 0.2-1.0 mg/dL Aspartate Amino Transferase (AST) 27 13-40 U/L Alanine Aminotransferase (ALT) 28 7-40 U/L Alkaline Phosphatase 112 46-116 U/L Total Protein 7.1 5.7-8.2 g/dL Albumin 5.0 H 3.2-4.8 g/dL Thyroid Stimulating Hormone (TSH) 0.24 L 0.55-4.78 uIU/mL Free Thyroxine (T4) Calculated 1.68 0.89-1.76 ng/dL Time of 1ST Reevaluation: 01:18 Reevaluation 1ST: Unchanged Patient Education/Counseling: Diagnosis, Treatment Family Education/Counseling: No Family Present SEPSIS Sepsis Screen Date sepsis recognized/suspect: Mar 13, 2025 Time Sepsis recognized/suspect: 0048 Recent Procedure: No On Antibiotic Therapy: No Respiratory Rate >20: No Heart Rate >90: No Temp<36 C (96.8 F) or >38.3 C: No SBP <90 or MAP <65 mmHG: No New Acute Mental Status Change: No Is the patient on CPAP, BIPAP,: No Vital Signs Date Time Temp Pulse Resp B/P (MAP) Pulse Ox O2 Delivery O2 Flow Rate FiO2 03/13/25 01:55 67 03/13/25 01:01 86 03/13/25 00:43 97.6 89 19 126/93 94 97.6 Laboratory Tests Test 03/13/25 01:06 White Blood Count 11.4 10^3/uL (4.4-10.8) H Departure 1 Departure Time of Disposition: 03:00 Impression: Primary Impression: Palpitations Disposition: 01 HOME / SELF CARE / HOMELESS Condition: Stable e-Prescriptions Potassium Chloride (Potassium Chloride ER) 10 Meq Tab 10 MEQ PO DAILY for 10 Days, #10 TAB Prov: KAE GILLIAM MD 03/13/25 Discharged With: Self Critical Care Note Critical Care Time?: No Stability Stability form required: No Heart Score Heart Score: Heart Score Response (Comments) Value History Slightly Suspicious 0 EKG Normal 0 Age <45 0 Risk Factors No known risk factors 0 Troponin Normal limit 0 Total 0 KAE GILLIAM MD Mar 13, 2025 01:19
[2025-03-13 01:36] LABS: Hemoglobin 10.2 g/dL (12.2-16.2)
[2025-03-13 01:37] LABS: Hematocrit 32.6 % (36.0-46.0); Mean Corpuscular Hemoglobin 22.7 pg (28.0-32.0); Mean Corpuscular Volume 72.6 fL (80.0-100.0); Nucleated Red Blood Cells % 0.0 %
[2025-03-13 01:42] LABS: Alanine Aminotransferase 28 U/L (7-40); Alkaline Phosphatase 112 U/L (46-116); Anion Gap 11 (5-15); Bilirubin, Total 0.7 mg/dL (0.2-1.0); Calcium 9.6 mg/dL (8.7-10.4); Carbon Dioxide 26 mmol/L (20-31); Chloride 104 mmol/L (98-107); Sodium 141 mmol/L (136-145); Total Protein 7.1 g/dL (5.7-8.2)
[2025-03-13 01:44] LABS: Albumin 5.0 g/dL (3.2-4.8); BUN/Creatinine Ratio 6.9 (10.0-20.0); Blood Urea Nitrogen < 5 mg/dL (9-23); Glucose 111 mg/dL (74-106); Potassium 3.2 mmol/L (3.5-5.1)
[2025-03-13 01:55] VITALS: PULSE 67
--- NOTE | 2025-03-13 01:56 | ECG ---
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
[2025-03-13] MEDS ORDERED: POTA-228 PO (03:49)
[2025-03-13] MEDS ORDERED: POTASSIUM CHL 20 Meq TABLET PO ONE (04:00)
== END 2025-03-13 04:42 | disposition left against medical advice (07) ==
LOC: ER 00:37
DX: R00.2 Palpitations (principal); Z79.899 Other long term (current) drug therapy
CPT/HCPCS: 36415; 80053; 84439; 84443; 84484; 85025; 93005

== ENCOUNTER 2025-04-24 16:02 | Emergency (ER) | payer MEDICAID ==
[~2025-04-24] VITALS: Ht 167.6 cm; Wt 61.4 kg
[~2025-04-24 16:02] MED LIST changes: +POTA-228 PO
[2025-04-24 16:03] VITALS: BP 145/91; RESP 18; TEMP 97.6; O2SAT 96
--- NOTE | 2025-04-24 16:17 | ED.PDOC ---
History of Present Illness HPI Comments 20F presents to the ER w/ the c/c of CP. Pt reports on having had dull CP on the right side and the bilateral chest wall which is associated w/ cough. Pt states on her chest feeling "tight" for a "few" days. Denies any symptoms at this time. Patient denies any SOB, dizziness, numbness, weakness, tingling, fever, chills, or recent fall. Chief Complaint: Chest Pain Time Seen by MD: 16:15 Reviewed Notes: Nurses Notes, Medications, Allergies Allergies: Coded Allergies: NO KNOWN ALLERGIES (Unverified , 11/05/24) Home Meds Active Scripts Potassium Chloride (Potassium Chloride ER) 10 Meq Tab, 10 MEQ PO DAILY for 10 Days, #10 TAB Prov:KAE GILLIAM MD 03/13/25 Nitrofurantoin Monohydrate Mac (Macrobid) 100 Mg Cap, 100 MG PO BID for 7 Days, #14 CAP Prov:VIANEY MALIK DO 01/16/25 Docusate Sodium (Colace) 100 Mg Cap, 1 CAP PO BID, #60 CAP 2 Refills Prov:JOSEY CHAN [facility] 12/28/24 Ibuprofen Micronized (MOTRIN TABLET) 600 Mg Tb, 600 MG PO Q6HP PRN for 20 Days, #80 TAB Prov:JOSEY CHAN CNM 12/28/24 Cephalexin Monohydrate (Cephalexin) 500 Mg Tab, 1 TAB PO TID for 5 Days, #15 TAB Prov:VIANEY MALIK DO 08/22/24 Reported Medications Ursodiol (Ursodiol) 300 Mg Cap, 300 MG PO BID for 30 Days, #60 MG 1 Refill 12/05/24 Nitrofurantoin Monohydrate Mac (Macrobid) 100 Mg Cap, 100 MG PO BID for 7 Days, CAP 10/24/24 Ferrous Sulfate (Ferrous Sulfate) 325 Mg Tab, 325 MG PO ONCE PRN for daily for 30 Days, MG 10/07/24 Vit W/ Ferrous Fumara ( One Daily) Daily Tab, 1 TAB PO DAILY, #90 TAB 3 Refills 09/21/24 Information Source: Patient Mode of Arrival: Ambulatory Severity: Moderate Timing: Days Duration: Since onset, Days Prehospital treatment: None Past Medical History PAST MEDICAL HISTORY: Denies Surgical History: Denies all surgeries 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 WORKER 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: No Pertinent RECEIVING WORKER History Family History Family History: Reviewed,noncontributory to illness, Unknown Social History Smoker: Non-Smoker Alcohol: Denies ETOH Use Drugs: Denies Drug Use Lives In: Home Constitutional: denies: chills, diaphoresis, fatigue, fever, malaise, sweats, weakness, others EENTM: denies: blurred vision, double vision, ear bleeding, ear discharge, ear drainage, ear pain, ear ringing, eye pain, eye redness, hearing loss, mouth pain, mouth swelling, nasal discharge, nose bleeding, nose congestion, nose pain, photophobia, tearing, throat pain, throat swelling, voice changes, others Respiratory: reports: cough; denies: hemoptysis, orthopnea, SOB at rest, shortness of breath, SOB with excertion, stridor, wheezing, others Cardiovascular: reports: chest pain; denies: dizzy spells, diaphoresis, Dyspnea on exertion, edema, irregular heart beat, left arm pain, lightheadedness, palpitations, PND, syncope, others Gastrointestinal: denies: abdomen distended, abdominal pain, blood streaked bowels, constipated, diarrhea, dysphagia, difficulty swallowing, hematemesis, melena, nausea, poor appetite, poor fluid intake, rectal bleeding, rectal pain, vomiting, others Genitourinary: denies: abnormal vagina bleeding, burning, dyspareunia, dysuria, flank pain, frequency, hematuria, incontinence, pain, , vagina discharge, urgency, others Neurological: denies: dizziness, fainting, headache, left sided numbness, left sided weakness, numbness, paresthesia, pre-existing deficit, right sided numbness, right sided weakness, seizure, speech problems, tingling, tremors, weakness, others Musculoskeletal: denies: back pain, gout, joint pain, joint swelling, muscle pain, muscle stiffness, neck pain, others Integumetry: denies: bruises, change in color, change in hair/nails, dryness, laceration, lesions, lumps, rash, wounds, others Allergic/Immunocompromised: denies: Difficulty Healing, Frequent Infections, Hives, Itching, others Hematologic/Lymphatic: denies: anemia, blood clots, easy bleeding, easy bruising, swollen glands, others Endocrine: denies: excessive hunger, excessive sweating, excessive thirst, excessive urination, flushing, intolerance to cold, intolerance to heat, unex plained weight gain, unexplained weight loss, others Psychiatric: denies: anxiety, bipolar disorder, depression, hopeless, panic disorder, schizophrenia, sleepless, suicidal, others All Other Systems: Reviewed and Negative Physical Exam Exam Comments Bilateral chest wall tenderness General Appearance: No Apparent Distress, Normal HEENT: Normal ENT Inspection, Pharynx Normal, TMs Normal Neck: Full Range of Motion, Non-Tender, Normal, Normal Inspection Respiratory: Chest Non-Tender, Lungs Clear, No Accessory Muscle Use, No Respiratory Distress, Normal Breath Sounds Cardiovascular: No Edema, No JVD, No Murmur, No Gallop, Normal Peripheral Pulses, Regular Rate/Rhythm Breast Exam: Deferred Gastrointestinal: No Organomegaly, Non Tender, No Pulsatile Mass, Normal Bowel Sounds, Soft Genitalia: Deferred Pelvic: Deferred Rectal: Deferred Extremities: No calf tenderness, Normal capillary refill, Normal inspection, Normal range of motion, Non-tender, No pedal edema Musculoskeletal : Apperance: Normal Neurologic: Alert, primer press operator II-XII nml as Tested, No Motor Deficits, Normal Affect, Normal Mood, No Sensory Deficits Cerebellar Function: Normal Reflexes: Normal Skin: Dry, Normal Color, Warm Lymphatic: No Adenopathy Was a procedure done? Was a procedure done?: No EKG EKG : Pulse Rate (adult): 80 Amonate: Normal Cardiac Rhythm: NSR Block: None Hypertrophy: None ST: Normal Differential Dx Considerations may include: Pneumonia, costochondritis, cough, epigastric pain X-Ray, Labs, Meds, VS Vital Signs Date Time Temp Pulse Resp B/P (MAP) Pulse Ox O2 Delivery O2 Flow Rate FiO2 04/24/25 17:04 82 04/24/25 16:17 80 04/24/25 16:08 80 04/24/25 16:03 97.6 83 18 145/91 96 97.6 Lab Test 04/24/25 16:37 Range/Units White Blood Count 6.8 4.4-10.8 10^3/uL Red Blood Count 4.87 4.0-5.20 10^6/uL Hemoglobin 11.2 L 12.2-16.2 g/dL Hematocrit 35.4 L 36.0-46.0 % Mean Corpuscular Volume 72.7 L 80.0-100.0 fL Mean Corpuscular Hemoglobin 23.1 L 28.0-32.0 pg Mean Corpuscular Hemoglobin Concent 31.8 L 32.0-36.0 g/dL Red Cell Distribution Width 18.4 H 11.8-14.3 % Platelet Count 280 140-450 10^3/uL Mean Platelet Volume 10.0 6.9-10.8 fL Neutrophils (%) (Auto) 56.5 37.0-80.0 % Lymphocytes (%) (Auto) 27.9 10.0-50.0 % Monocytes (%) (Auto) 5.4 0.0-12.0 % Eosinophils (%) (Auto) 9.1 H 0.0-7.0 % Basophils (%) (Auto) 1.1 0.0-2.0 % Neutrophils # (Auto) 3.9 1.6-8.6 10 ^3/uL Lymphocytes # (Auto) 1.9 0.4-5.4 10 ^3/uL Monocytes # (Auto) 0.4 0-1.3 10 ^3/uL Eosinophils # (Auto) 0.6 0-0.8 10 ^3/uL Basophils # (Auto) 0.1 0-0.2 10 ^3/uL Nucleated Red Blood Cells 0.0 % Sodium Level 141 136-145 mmol/L Potassium Level 3.5 3.5-5.1 mmol/L Chloride Level 105 98-107 mmol/L Carbon Dioxide Level 26 20-31 mmol/L Anion Gap 10 5-15 Blood Urea Nitrogen 7 L 9-23 mg/dL Creatinine 0.65 0.550-1.02 mg/dL Glomerular Filtration Rate Calc 128 >90 mL/min BUN/Creatinine Ratio 10.8 10.0-20.0 Serum Glucose 93 74-106 mg/dL Calcium Level 9.9 8.7-10.4 mg/dL Troponin I High Sensitivity < 3 L </=34 ng/L X-Ray, Labs, Meds, VS Comment Imaging was reviewed by this provider, there is no obvious pathological or acute disease process. Pending radiology review Labs were reviewed by this provider, no abnormalities Vital signs reviewed by this provider, clinically stable Time of 1ST Reevaluation: 16:45 Reevaluation 1ST: Unchanged Patient Education/Counseling: Diagnosis, Treatment, Prognosis, Need For Follow Up (Follow up with PCP next available appointment. Return to the emergency department if symptoms worsen.) Family Education/Counseling: No Family Present SEPSIS Sepsis Screen Date sepsis recognized/suspect: Apr 24, 2025 Time Sepsis recognized/suspect: 1604 Recent Procedure: No On Antibiotic Therapy: No Respiratory Rate >20: No Heart Rate >90: No Temp<36 C (96.8 F) or >38.3 C: No SBP <90 or MAP <65 mmHG: No New Acute Mental Status Change: No Is the patient on CPAP, BIPAP,: No Physician Orders Electrocardigram (04/24/25 16:13) Electrocardigram (04/24/25 17:13) Electrocardigram (04/24/25 19:13) Chest Xray 1 View (04/24/25 16:34) Vital Signs Date Time Temp Pulse Resp B/P (MAP) Pulse Ox O2 Delivery O2 Flow Rate FiO2 04/24/25 17:04 82 04/24/25 16:17 80 04/24/25 16:08 80 04/24/25 16:03 97.6 83 18 145/91 96 97.6 Laboratory Tests Test 04/24/25 16:37 White Blood Count 6.8 10^3/uL (4.4-10.8) Departure 1 Departure Time of Disposition: 17:24 Impression: Primary Impression: Musculoskeletal chest pain Additional Impression: Costochondritis Disposition: 01 HOME / SELF CARE / HOMELESS Condition: Stable e-Prescriptions Naproxen (NAPROSYN TABLET) 500 Mg Tb 1 TAB PO BID, #60 TAB 1 Refill Prov: JASMINE MOTT 04/24/25 Methylprednisolone (Medrol Dosepak) 4 Mg Usman 4 MG PO UD, #21 TAB UAD Prov: JASMINE MOTTP 04/24/25 Discharged With: Self Critical Care Note Critical Care Time?: No Stability Stability form required: No Heart Score Heart Score: Heart Score Response (Comments) Value History Slightly Suspicious 0 EKG Normal 0 Age <45 0 Risk Factors No known risk factors 0 Troponin Normal limit 0 Total 0 I personally scribed for JASMINE MOTTP ([email or web address]) on 04/24/25 at 16:17. Electronically submitted by Brian Carrillo ([email or web address]). I personally scribed for JASMINE MOTT ([email or web address]) on 04/24/25 at 16:17. Electronically submitted by Brian Carrillo ([email or web address]). JASMINE MOTT Apr 24, 2025 16:17
[2025-04-24 16:46] LABS: Hematocrit 35.4 % (36.0-46.0); Hemoglobin 11.2 g/dL (12.2-16.2); Mean Corpuscular Hemoglobin 23.1 pg (28.0-32.0); Mean Corpuscular Volume 72.7 fL (80.0-100.0); Nucleated Red Blood Cells % 0.0 %
[2025-04-24 16:51] LABS: Chloride 105 mmol/L (98-107); Sodium 141 mmol/L (136-145)
[2025-04-24 16:52] LABS: Anion Gap 10 (5-15); Carbon Dioxide 26 mmol/L (20-31)
[2025-04-24 16:53] LABS: Calcium 9.9 mg/dL (8.7-10.4)
[2025-04-24 16:54] LABS: Potassium 3.5 mmol/L (3.5-5.1)
[2025-04-24 16:58] LABS: BUN/Creatinine Ratio 10.8 (10.0-20.0); Glucose 93 mg/dL (74-106)
[2025-04-24 17:00] LABS: Blood Urea Nitrogen 7 mg/dL (9-23)
[2025-04-24 17:04] VITALS: PULSE 82
--- NOTE | 2025-04-24 17:09 | DVH ---
CHEST RADIOGRAPH INDICATION: cp TECHNIQUE: Single frontal view of the chest was obtained COMPARISON: XY CHEST PORTABLE on DOS: 01/05/24 FINDINGS: Lines and Tubes: None Lungs: No focal consolidation. Pleura: No effusion. No pneumothorax. Cardiomediastinal contours: Unremarkable Bones: No acute osseous abnormality. IMPRESSION: 1. No acute cardiopulmonary disease.
[2025-04-24] MEDS ORDERED: METH4PAK PO (17:25)
[2025-04-24] MEDS ORDERED: NAP500T PO (17:25)
--- NOTE | 2025-04-24 18:32 | ECG ---
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
--- NOTE | 2025-04-24 18:40 | ECG ---
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
== END 2025-04-24 17:52 | disposition home or self-care (01) ==
LOC: ER 16:02
DX: R07.89 Other chest pain (principal); M94.0 Chondrocostal junction syndrome [Tietze]; Z79.899 Other long term (current) drug therapy
CPT/HCPCS: 36415; 71045; 80048; 84484; 85025; 93005